=== PATIENT | female | born 1965 | race Caucasian/White ===

== ENCOUNTER 2017-05-20 16:02 | Emergency (ER) | payer BC, MEDICAID ==
[~2017-05-20] VITALS: Ht 165.1 cm; Wt 90.7 kg
[~2017-05-20 16:02] MED LIST: AMLO5TAB4 PO; ARIP5TAB10 PO; BISA-79 PO; CLON0.5T PO; DOCU100C68 PO; FAMO-131 PO; HYDR-3974 PO; HYDR10SY12 PO; HYDROMORPHONE SQ; METO25TA3 PO; ONDA4TAB8 PO; SEVE800T7 PO; VIT1TABL44 PO
--- NOTE | 2017-05-20 16:49 | NUR ---
Corina harden in [facility] - 05/20/17 at 1650 by DOMINIQUE AMBER ROBERTSON
[2017-05-20 16:57] LABS: BASOPHILS # (AUTO) 0.5 /CMM (0.0-0.2); BASOPHILS % (AUTO) 3.9 % (0.0-2.0); EOSINOPHILS # (AUTO) 0.3 /CMM (0.0-0.7); EOSINOPHILS % (AUTO) 2.1 % (0.0-6.0); HEMATOCRIT 34 % (33-45); HEMOGLOBIN 11.2 g/dL (11.5-14.8); LYMPHOCYTES # (AUTO) 1.6 /CMM (0.8-4.8); LYMPHOCYTES % (AUTO) 11.9 % (20.0-44.0); MEAN CORPUSCULAR HEMOGLOBIN 28 PG (26.0-33.0); MEAN CORPUSCULAR HGB CONC 33 g/dl (31.0-36.0); MEAN CORPUSCULAR VOLUME 85 fL (82-100); MONOCYTES # (AUTO) 1.1 /CMM (0.1-1.30); MONOCYTES % (AUTO) 7.8 % (2.0-12.0); NEUTROPHILS % (AUTO) 74.3 % (43.0-81.0); PLATELET COUNT (AUTO) 276 /CMM (150-450); RDW COEFFICIENT OF VARIATION 13.1 (11.5-15.0); RED BLOOD CELL COUNT(AUTO) 4.01 MIL/uL (4.0-5.2); WHITE BLOOD COUNT (AUTO) 13.5 K/uL (4.3-11.0)
--- NOTE | 2017-05-20 17:00 | NUR ---
PT [facility]BULANCE FOR FALL TO LEFT HIP TODAY WHILE REACHING FOR SOMETHING PT ALERT WITH ORIENTATION X 4 PT HAS BENDED KNEES BILATERALLY PT HAS A QUITIN CATH IN [facility]
[2017-05-20 17:19] LABS: INR 0.92 (0.85-1.15)
[2017-05-20 17:23] LABS: TROPONIN I < 0.017 ng/mL (0.00-0.056)
[2017-05-20 17:26] LABS: ALANINE AMINOTRANSFERASE 24 U/L (12-78); ALBUMIN 2.8 g/dL (3.4-5.0); ALKALINE PHOSPHATASE 85 U/L (46-116); ASPARTATE AMINOTRANSFERASE 31 U/L (15-37); BILIRUBIN,DIRECT 0.1 mg/dL (0.0-0.2); BILIRUBIN,TOTAL 0.3 mg/dL (0.2-1.0); CALCIUM, SERUM 8.9 mg/dL (8.5-10.1); CARBON DIOXIDE 17 mmol/L (21-32); CHLORIDE 99 mmol/L (98-107); GLUCOSE 72 mg/dL (74-106); POTASSIUM 5.4 mmol/L (3.5-5.1); SODIUM SERUM 131 mmol/L (136-145); TOTAL PROTEIN, SERUM 7.8 g/dL (6.4-8.2)
[2017-05-20 17:29] LABS: UREA NITROGEN, BLOOD 105 mg/dL (7-18)
--- NOTE | 2017-05-20 18:22 | NUR ---
SET UP S RIG FOR TRANSPORT WITH SARAH AGUAYO 70 MIN - TRIP#[id number]
--- NOTE | 2017-05-20 18:50 | NUR ---
PT REPORT GIVEN TO ROYAL MATTSON X-RAYS, LABS AND DISCHARGE PAPER GIVEN PIV REMOVED. [address] [employer] HERE TO TRANSPORT PT BACK TO FACILITY
--- NOTE | 2017-05-20 19:27 | NUR ---
DISCHARGED TO [facility] BY AMBULANZ VITAL SIGNS STABLE.
[2017-05-20 19:29] VITALS: BP 130/90
== END 2017-05-20 19:31 | disposition home or self-care (01) ==
LOC: ER 16:03
DX: S70.02XA Contusion of left hip, initial encounter (principal); I12.0 Hypertensive chronic kidney disease with stage 5 chronic kidney disease or end stage renal disease; N18.6 End stage renal disease; D64.9 Anemia, unspecified; G82.20 Paraplegia, unspecified; K59.00 Constipation, unspecified; F31.9 Bipolar disorder, unspecified; F20.9 Schizophrenia, unspecified; M85.80 Other specified disorders of bone density and structure, unspecified site; Z91.15 Patient's noncompliance with renal dialysis; Z93.0 Tracheostomy status; Z99.2 Dependence on renal dialysis; W19.XXXA Unspecified fall, initial encounter; Y93.89 Activity, other specified; Y92.89 Other specified places as the place of occurrence of the external cause; Y99.8 Other external cause status
CPT/HCPCS: 36415; 71045-TC; 72170-TC; 80048-TC; 80076-TC; 84484-TC; 85025-TC; 85730-TC; 87081-TC; A4606; Z7610

== ENCOUNTER 2017-10-19 05:01 | Inpatient (IN) | payer BC, MEDICAID ==
[~2017-10-19] VITALS: Ht 160 cm; Wt 61.2 kg
[~2017-10-19 05:01] MED LIST changes: +FAMO-131 GT; -FAMO-131 PO
--- NOTE | 2017-10-19 05:20 | NUR ---
PT TO ER BED 5. BIBRA FROM DIALYSIS C/O LOW B/P 76/43. PT PLACED ON BODY MECHANIC. VSS/RESP EVEN UNLABORED/NAD NOTED/SKIN WARM AND DRY/AFEBRILE/DENIES N-V-D/AOX4. AWAITNG MD MONCADA.
--- NOTE | 2017-10-19 05:56 | NUR ---
PT REFUSED EKG
[2017-10-19] MEDS ORDERED: IV NS 0.9% 500 ML BAG IV ONE ×2 (06:00→09:30)
[2017-10-19] MEDS ORDERED: CEFTRIAXONE 1GM BAG (ER ONLY) 50 ML IV ONE (06:00)
--- NOTE | 2017-10-19 06:03 | NUR ---
20G IV TO R WRIST X 1 ATTEMPT USING ASEPTIC TECH. IV FLUSHES EASILY WITH NS, NO S/S INFILTRATION NOTED AT THIS TIME. UNABLE TO DRAW BLOOD FOR LAB.
[2017-10-19] MEDS ORDERED: CEFTRIAXONE 1 G VIAL ONE (06:04)
--- NOTE | 2017-10-19 06:05 | NUR ---
LAB AT BEDSIDE TO DRAW LABS AND BLOOD CULTURES.
--- NOTE | 2017-10-19 06:22 | NUR ---
DR. NGO AT BEDSIDE FOR EVAL.
--- NOTE | 2017-10-19 06:24 | NUR ---
PT ACCEPTED EKG
--- NOTE | 2017-10-19 06:27 | NUR ---
INFORMED DR. JENSEN PT REFUSED MCGOVERN CATH. RISK AND BENEFITS EXPLAINED X 3. PT STRONGLY REFUSED. REQUEST FOR BED JUNG.
--- NOTE | 2017-10-19 06:36 | NUR ---
XRAY AT BEDSIDE.
--- NOTE | 2017-10-19 06:45 | NUR ---
PLACED F/C PER MD ORDER. URINE COLLECTED. CALLED LAB FOR BUDGET AND POLICY ANALYST.
[2017-10-19 06:49] LABS: CALCIUM, SERUM 9.2 mg/dL (8.5-10.1); CARBON DIOXIDE 31 mmol/L (21-32); CHLORIDE 96 mmol/L (98-107); CREATININE 4.8 mg/dL (0.6-1.3); GLUCOSE 109 mg/dL (74-106); POTASSIUM 3.4 mmol/L (3.5-5.1); SODIUM SERUM 137 mmol/L (136-145); UREA NITROGEN, BLOOD 67 mg/dL (7-18)
--- NOTE | 2017-10-19 06:54 | NUR ---
Corina harden in ED - 10/19/17 at 0702 by RICK PLACED F/C PER MD ORDER. URINE COLLECTED. CALLED LAB FOR CAUSTIC ROOM OPERATOR.
[2017-10-19 06:56] LABS: TROPONIN I < 0.017 ng/mL (0.00-0.056)
[2017-10-19 07:04] LABS: ALANINE AMINOTRANSFERASE 53 U/L (12-78); ALBUMIN 3.9 g/dL (3.4-5.0); ALKALINE PHOSPHATASE 111 U/L (46-116); ASPARTATE AMINOTRANSFERASE 25 U/L (15-37); BILIRUBIN,DIRECT 0.1 mg/dL (0.0-0.2); BILIRUBIN,TOTAL 0.3 mg/dL (0.2-1.0); TOTAL PROTEIN, SERUM 7.8 g/dL (6.4-8.2)
--- NOTE | 2017-10-19 07:22 | NUR ---
REPORT GIVEN TO ROYAL GAYTAN FOR SAIRA.
[2017-10-19] MEDS ORDERED: VANCOMYCIN 1 GM in IV D5W 250 ML IV ONE (07:30)
[2017-10-19] MEDS ORDERED: IV NS 0.9% 1,000 ML BAG IV ONE (07:30)
[2017-10-19 07:45] LABS: BASOPHILS % (AUTO) 0.5 % (0.0-2.0); EOSINOPHILS % (AUTO) 1.6 % (0.0-6.0); HEMATOCRIT 40 % (33-45); HEMOGLOBIN 12.8 g/dL (11.5-14.8); LYMPHOCYTES # (AUTO) 1.5 /CMM (0.8-4.8); LYMPHOCYTES % (AUTO) 22.4 % (20.0-44.0); MEAN CORPUSCULAR HEMOGLOBIN 28 PG (26.0-33.0); MEAN CORPUSCULAR VOLUME 87 fL (82-100); MONOCYTES # (AUTO) 0.5 /CMM (0.1-1.30); MONOCYTES % (AUTO) 7.1 % (2.0-12.0); NEUTROPHILS # (AUTO) 4.5 /CMM (1.8-8.9); NEUTROPHILS % (AUTO) 68.4 % (43.0-81.0); PLATELET COUNT (AUTO) 171 /CMM (150-450); RDW COEFFICIENT OF VARIATION 18.4 (11.5-15.0); WHITE BLOOD COUNT (AUTO) 6.6 K/uL (4.3-11.0)
[2017-10-19 07:46] LABS: MEAN CORPUSCULAR HGB CONC 32 g/dl (31.0-36.0)
[2017-10-19] MEDS ORDERED: DIPH-4 GT (08:17)
[2017-10-19] MEDS ORDERED: SENN-18 GT (08:17)
[2017-10-19] MEDS ORDERED: ESCI10TA GT (08:17)
[2017-10-19] MEDS ORDERED: ACET650S26 GT (08:17)
[2017-10-19] MEDS ORDERED: NUT.237L67 GT (08:17)
[2017-10-19] MEDS ORDERED: DOCU50LI GT (08:22)
[2017-10-19] MEDS ORDERED: MELA3TAB GT (08:22)
[2017-10-19] MEDS ORDERED: MIDO5TAB GT (08:22)
[2017-10-19 08:44] LABS: APPEARANCE,URINE CLEAR (CLEAR); BILIRUBIN,URINE NEGATIVE (NEGATIVE); BLOOD, URINE NEGATIVE Ery/uL (NEGATIVE); COLOR,URINE YELLOW (YELLOW); KETONES,URINE NEGATIVE (NEGATIVE); LEUKOCYTE ESTERASE ,URINE NEGATIVE (NEGATIVE); NITRITE, URINE NEGATIVE (NEGATIVE); PH,URINE 7.5 (5.0-8.0); PROTEIN,URINE 1+ mg/dl (NEGATIVE); UGLUCOSE NEGATIVE (NEGATIVE); UROBILINOGEN,URINE 0.2 EU/dL (0.2)
[2017-10-19 08:59] LABS: BACTERIA,URINE Rare /HPF (None Seen); RBC,URINE 0-2 /HPF (0-2); SQUAMOUS EPITHELIAL CELL,UR Few /HPF (None Seen); WBC,URINE 0-2 /HPF (0-3)
--- NOTE | 2017-10-19 09:16 | NUR ---
PAGED [facility] FOR ADMIT - FLEET ASSISTANT DR. MALDONADO
--- NOTE | 2017-10-19 09:27 | NUR ---
CALLED NURSE SUP FOR TELE BED
--- NOTE | 2017-10-19 10:54 | NUR ---
REPORT GIVEN TO RADHA PAIGE FOR TELE [phone].
--- NOTE | 2017-10-19 11:16 | NUR ---
LANCE CREWMEMBER NOTES RECEIVED PT FROM E.R. STAFF, AWAKE, ALERT AND VERBALLY RESPONSIVE, ASSISTED TO BED, MADE COMFORTABLE, NO COMPLAINT OF PAIN, RESPIRATIONS NORMAL AND NOT LABORED, HD CATH AT RIGHT UPPER CHEST, NO BLEEDING NOTED, WITH F/C INTACT AND DRAINING WITH CLEAR, YELLOW URINE, ROOM SET UP ORIENTATION PROVIDED, VERBALIZED UNDERSTANDING, AWAITING ADMISSION ORDERS FROM MD.
[2017-10-19] MEDS ORDERED: MIDODRINE HCL (5MG) 5 MG TABLET GT PRN (12:00)
[2017-10-19] MEDS ORDERED: ACETAMINOPHEN 650 MG/20.3 ML UDC GT PRN (12:00)
[2017-10-19] MEDS ORDERED: diphenhydrAMINE HCL ELIX 25 MG/10 ML UDC GT PRN (12:00)
[2017-10-19] MEDS ORDERED: IV NS 0.9% 1,000 ML BAG IV PRN (14:00)
[2017-10-19] MEDS ORDERED: ONDANSETRON HCL/PF 4 MG/2 ML VIAL IV PRN (14:00)
[2017-10-19] MEDS: IV NS 0.9% 1,000 ML IV PRN (15:13)
[2017-10-19] MEDS: NEPRO 1,000 ML BOTTLE GT PRN (15:56)
[2017-10-19 16:00] VITALS: BP 98/51
[2017-10-19] MEDS: MIDODRINE HCL (5MG) 5 MG TABLET GT SCH (16:55)
[2017-10-19] MEDS: DOCUSATE SODIUM LIQ 100 MG/10 ML UDC GT SCH (16:56)
[2017-10-19] MEDS: FAMOTIDINE (20 MG) 20 MG TABLET GT SCH (16:56)
[2017-10-19] MEDS ORDERED: Medication Not On Formulary EA (Melatonin 3 MG) GT SCH (17:00)
--- NOTE | 2017-10-19 18:41 | NUR ---
CONSTRUCTION FLAGGER NOTES PT IN BED, ASLEEP, EASY TO AROUSE, DENIES PAIN, RESPIRATIONS NORMAL, IV FLUIDS INFUSING WELL, GT FEEDING INFUSING WELL, TOLERATING WELL, PT HAS TRACH SITE COVERED WITH DRY DRESSING, PT REFUSED OLD TRACH SITE TO BE ASSESSED, CALL LIGHT WITHIN REACH, KEPT COMFORTABLE, PT SEEN BY DR. GALEANO TODAY, PT REFUSED ECHO AND LAB DRAW FOR TROPONIN, DR. GALEANO AWARE.
--- NOTE | 2017-10-19 19:00 | NUR ---
MS RN OPENING NOTE RECEIVE PATIENT AWAKE IN BED, A/O X 4, NO SOB OR DISTRESS NOTED, CALL LIGHT WITHIN REACH. SAFETY MEASURES IMPLEMENTED. WILL CONTINUE TO MONITOR THROUGHOUT SHIFT
[2017-10-19 20:00] VITALS: BP 99/52
[2017-10-19] MEDS: SENNOSIDES 8.6 MG TABLET GT SCH (21:26)
--- NOTE | 2017-10-19 22:34 | NUR ---
MS RN NOTES PT REFUSED BLOOD DRAW DESPITE EXPLAINING RISKS AND BENEFITS ANGELINE GALEANO AWARE
[2017-10-20] VITALS (7 sets, daily range): BP systolic 110–122; BP diastolic 55–68
--- NOTE | 2017-10-20 06:11 | NUR ---
CRAYON SORTING MACHINE FEEDER CLOSING NOTES ASLEEP AND EASILY AWAKEN STABLE, NOT IN DISTRESS. TOLERATING ROOM AIR 98%. SINUS TACHY 102. RESPIRATION EVEN AND UNLABORED. KEPT CLEAN AND DRY AND COMFORTABLE, ALL NURSING CARE RENDERED. NEEDS ATTENDED AND ANTICIPATED, GOOD SKIN CARE PROVIDED. NO COMPLAIN OF PAIN. REPOSITION EVERY 2 HOURS. ON LOW BED AT ALL TIMES TO ENSURE SAFETY. SAFE HAZARD FREE ENVIRONMENT PROVIDED. CALL LIGHT WITHIN EASY TO REACH. WILL ENDORSE NEXT SHIFT CONTINUITY OF CARE.
--- NOTE | 2017-10-20 07:33 | NUR ---
AIR BRAKE TESTER NOTES PT IN BED, ASLEEP, EASY TO AROUSE, ALERT AND VERBALLY RESPONSIVE, DIALYSIS ONGOING, TOLERATING WELL, BP WITHIN NORMAL LIMITS, CALL LIGHT WITHIN REACH, KEPT TRANSPORTATION DRIVER BED.
[2017-10-20] MEDS: ESCITALOPRAM OXALATE (10 MG) 10 MG TABLET GT SCH (09:19)
[2017-10-20] MEDS: DOCUSATE SODIUM LIQ 100 MG/10 ML UDC GT SCH ×2 (09:19→16:30)
[2017-10-20] MEDS: MIDODRINE HCL (5MG) 5 MG TABLET GT SCH ×3 (09:19→16:31)
[2017-10-20] MEDS: FAMOTIDINE (20 MG) 20 MG TABLET GT SCH ×2 (09:19→16:31)
[2017-10-20] MEDS: NEPRO 1,000 ML BOTTLE GT PRN (09:23)
[2017-10-20] MEDS: IV NS 0.9% 1,000 ML IV PRN (09:28)
--- NOTE | 2017-10-20 11:49 | NUR ---
RN MS NOTES PT IN BED, RESTING, ALERT AND ORIENTED, NO COMPLAINT OF PAIN OR ANY DISCOMFORT, TOLERATING GT FEEDING WELL, SEEN BY DR. GALEANO, PLAN OF CARE DISCUSSED WITH PT, VERBALIZED UNDERSTANDING, AGREED TO DRAW BLOOD BUT WHEN PHLEBOTOMISTS CAME FOR BLOOD DRAW SHE REFUSED AGAIN, SAYING THAT IT'S OK, EXPLAINED RISKS AND BENEFITS, STILL REFUSED, DR. GAELANO INFORMED.
--- NOTE | 2017-10-20 18:43 | NUR ---
RN MS NOTES PT IN BED, ASLEEP, EASY TO AROUSE, NO COMPLAINT OF PAIN, RESPIRATIONS NORMAL GT FEEDING INFUSING WELL, IV FLUIDS INFUSING WELL, PM CARE RENDERED, PT REFUSED HER TSHIRT TO BE REMOVED, ASSISTED IN TURNING AND REPOSITIONING, PM MEDS GIVEN, VITALS WNL, ALL NEEDS ATTENDED.
--- NOTE | 2017-10-20 19:35 | NUR ---
MS/RN OPENING NOTES PT RECEIVED WITH EYES CLOSED. AROUSABLE TO NAME. ON ROOM AIR, BREATHING EVEN AND UNLABORED. DENIES SOB OR PAIN. A/OX3. MCGOVERN IN PLACE AND DRAINING TO GRAVITY. IV TO RIGHT WRIST PATENT AND INTACT RUNNING IVF ORDERED. GT FEEDING RUNNING NEPHRO AT 55ML/HR. BED IN LOW/LOCKED POSITION WITH CALL LIGHT IN REACH. SIDE RAILS UPX3 AND BED ALARM ON FOR SAFETY. WILL CONTINUE TO MONITOR
[2017-10-20] MEDS: SENNOSIDES 8.6 MG TABLET GT SCH (21:00)
[2017-10-21] MEDS: NEPRO 1,000 ML BOTTLE GT PRN (04:24)
[2017-10-21] MEDS: IV NS 0.9% 1,000 ML IV PRN (06:18)
--- NOTE | 2017-10-21 06:24 | NUR ---
MS/RN CLOSING NOTES PT ASLEEP, AROUSABLE TO NAME. A/OX3. REMAINS ON ROOM AIR, BREATHING EVEN AND UNLABORED. NO SOB OR PAIN, NO ACUTE DISTRESS THROUGHOUT SHIFT. RCW HD CATH IN PLACE, DRESSING C/D/I. IV TO RIGHT WRIST PATENT AND INTACT RUNNING IVF ORDERED. GT FEEDING RUNNING ORDERED. MCGOVERN IN PLACE AND DRAINING TO GRAVITY. PT WAS UNCOOPERATIVE WITH TURNING/REPOSITIONING Q2H AND HYGIENE. EDUCATED PT MORE THAN 3X, PT VERY UNCOOPERATIVE AND COMBATIVE AT TIMES BUT ABLE TO CLEAN PT'S PERIANAL AREA AND TURN. REFUSED FULL BODY SKIN CHECK AND COMPLETE BED BATH, AND REFUSED TO REMOVE DIRTY TSHIRT. OTHERWISE, NO SIGNIFICANT CHANGES. BED IN LOW/LOCKED POSITION WITH CALL LIGHT IN REACH. SIDE RAILS UPX3 WITH BED ALARM ON. HEELS OFFLOADED. WILL ENDORSE TO DAY SHIFT RN
--- NOTE | 2017-10-21 07:50 | NUR ---
MS RN OPENING NOTES RECEIVED PT FROM NIGHTSHIFT NURSE IN STABLE CONDITION. PT IS A/O X3. NO SOB OR ACUTE SIGNS OF DISTRESS NOTED. BREATHING IS EVEN AND UNLABORED. PT ON RA AND SATING WELL. SHE DENIES ANY PAIN AT THIS TIME. IV TO RIGHT WRIST NOTED TO BE PATENT INTACT. PT TOLERATING NS INFUSION WELL. NO REDNESS OR SIGNS OF INFILTRATION NOTED. PERMACATH NOTED FOR HD ACCESS. DRESSING CLEAN, DRY, AND INTACT. GTUBE NOTED TO BE PATENT AND INTACT. PLACEMENT VERIFIED VIA AUSCULTATION. PT TOLERATING FEEDING WELL. NO N/V/D NOTED BY NIGHTSHIFT NURSE AND/OR EXPRESSED BY PT. LESS THAN 5CC OF RESIDUALS NOTED AT THIS TIME. MCGOVERN CATHETER NOTED TO BE INTACT AND DRAINING CLEAR, YELLOW, URINE. BED IN LOW LOCKED POSITION, SIDE RAILS UP X2, CALL LIGHT WITHIN REACH. BED ALARM ON. WILL CONTINUE TO MONITOR
[2017-10-21 08:00] VITALS: BP 83/44
[2017-10-21] MEDS: ESCITALOPRAM OXALATE (10 MG) 10 MG TABLET GT SCH (08:31)
[2017-10-21] MEDS: DOCUSATE SODIUM LIQ 100 MG/10 ML UDC GT SCH ×2 (08:31→16:23)
[2017-10-21] MEDS: FAMOTIDINE (20 MG) 20 MG TABLET GT SCH ×2 (08:31→16:23)
[2017-10-21] MEDS: MIDODRINE HCL (5MG) 5 MG TABLET GT SCH ×3 (08:34→16:24)
--- NOTE | 2017-10-21 10:12 | NUR ---
MS RN NOTES: LAB DRAW PT CONTINUES TO REFUSE AM LAB DRAW. EDUCATION ABOUT IT'S IMPORTANCE ALONG WITH THE RISKS AND BENEFITS DISCUSSED WITH PT.
[2017-10-21 16:05] VITALS: BP 108/51
[2017-10-21 16:24] VITALS: BP 108/51
--- NOTE | 2017-10-21 19:08 | NUR ---
MS TEACHING YOUNG NOTES PT WAS DISCHARGED FROM FACILITY IN STABLE CONDITION. ALL NEEDS WERE ANTICIPATED FOR AND MET DURING SHIFT ALL DUE MEDS GIVEN. PT REPOSITIONED AND TURNED PER PROTOCOL. AM CARE RENDERED HOWEVER PT REFUSED FURTHER PRN TREATMENT. BELONGINGS VERIFIED PRIOR TO D/C. PT LEFT WITH ALL BELONGINGS. IV WAS SUCCESSFULLY REMOVED WITH NO COMPLICATIONS. PT UNABLE TO SIGNS D/C PAPERWORK. MYSELF AND FELLOW RN SIGNED ALL PAPERWORK. COPIES MADE AND PLACED IN PT'S CHART. MCGOVERN CATHETER REMOVED WITH NO COMPLICATIONS. PT ABLE TO VOID PRIOR TO D/C. GTUBE REMAINS PATENT AND INTACT. REPORT CALLED AND GIVEN TO DON THE RECEIVING NURSE. PT WAS SAFELY TRANSFERRED FROM [facility] TO [facility] AND LEFT VIA AMBULANCE TRANSPORT
== END 2017-10-21 19:00 | DRG 640 ==
LOC: ER 05:02 → MED 10:41 → TELE 12:45 → MED 10-20 10:05
PROVIDERS: ADMIT Internal Medicine Nephrology; ATTEND Internal Medicine Nephrology
PROC: 5A1D70Z Performance of Urinary Filtration, Intermittent, Less than 6 Hours Per Day (ICD-10-PCS; principal; 2017-10-20)
DX: E86.0 Dehydration (principal); N18.6 End stage renal disease; I12.0 Hypertensive chronic kidney disease with stage 5 chronic kidney disease or end stage renal disease; I95.9 Hypotension, unspecified; R13.10 Dysphagia, unspecified; Z99.2 Dependence on renal dialysis; Z93.0 Tracheostomy status; F29 Unspecified psychosis not due to a substance or known physiological condition; D64.9 Anemia, unspecified; E83.9 Disorder of mineral metabolism, unspecified; F31.9 Bipolar disorder, unspecified; F20.9 Schizophrenia, unspecified; Z91.19 Patient's noncompliance with other medical treatment and regimen
CPT/HCPCS: 36415; 71045-TC; 80048-TC; 80076-TC; 81000-TC; 83605-TC; 84484-TC; 84703-TC; 85025-TC; 87040-TC; 87081-TC; 87086-TC; 90935-TC; A4216; A4606; J0696; J3370; J7030; J7040; J7060; Z7610

== ENCOUNTER 2019-04-04 09:22 | Inpatient (IN) | payer BC, MEDICAID ==
[~2019-04-04] VITALS: Ht 167.6 cm; Wt 82.6 kg
[2019-04-04] VITALS (15 sets, daily range): BP systolic 96–151; BP diastolic 45–76
[~2019-04-04 09:22] MED LIST changes: +ACET650S26 GT; -AMLO5TAB4 PO; -ARIP5TAB10 PO; -BISA-79 PO; -CLON0.5T PO; +DIPH-4 GT; -DOCU100C68 PO; +DOCU50LI GT; +ESCI10TA PO; -FAMO-131 GT; +FAMO-131 PO; -HYDR-3974 PO; -HYDR10SY12 PO; -HYDROMORPHONE SQ; +MELA3TAB63 GT; -METO25TA3 PO; +MIDO5TAB4 GT; +NUT.237L67 GT; -ONDA4TAB8 PO; +SENN-18 GT; -SEVE800T7 PO; -VIT1TABL44 PO
--- NOTE | 2019-04-04 09:33 | NUR ---
PT REC'D TO ER VIA EMS WAS POST DILAYSIS SOB USES CAP AT HOME . TACH REMOVED 9 YEARS AGO RT ARM SHUNT HX [place] . ON NON AIR REBREATHER CALLED RT BIPAP BREATHING TX . AWAITING EVALUATION BY ER PROVIDER.
[2019-04-04] MEDS ORDERED: IPRATROPIUM NEB FS 0.5 MG/2.5 ML AMPUL.NEB ONE (09:35)
[2019-04-04] MEDS ORDERED: ALBUTEROL FS 2.5 MG/3 ML VIAL.NEB ONE (09:35)
--- NOTE | 2019-04-04 09:41 | NUR ---
RA 83% BIPAP 98% EKG DONE
--- NOTE | 2019-04-04 09:41 | NUR ---
RT AT BEDSID E BREATHING TX GIVNE AND BIPAP ALLPIED TO PT
[2019-04-04] MEDS ORDERED: IPRATROPIUM NEB FS 0.5 MG/2.5 ML AMPUL.NEB NEB ONE (10:00)
[2019-04-04] MEDS ORDERED: ALBUTEROL FS 2.5 MG/3 ML VIAL.NEB NEB ONE (10:00)
--- NOTE | 2019-04-04 10:11 | NUR ---
DORIS STRSHALINI 22 LET FA LABS DRAWN SENT TO LAB XRAY DONE
[2019-04-04 10:16] LABS: BASOPHILS % (AUTO) 0.4 % (0.0-2.0); EOSINOPHILS % (AUTO) 0.1 % (0.0-6.0); HEMATOCRIT 33 % (33-45); HEMOGLOBIN 10.6 g/dL (11.5-14.8); LYMPHOCYTES # (AUTO) 0.2 /CMM (0.8-4.8); LYMPHOCYTES % (AUTO) 2.6 % (20.0-44.0); MEAN CORPUSCULAR HGB CONC 32 g/dl (31.0-36.0); MEAN CORPUSCULAR VOLUME 97 fL (82-100); MONOCYTES # (AUTO) 0.6 /CMM (0.1-1.30); MONOCYTES % (AUTO) 6.7 % (2.0-12.0); NEUTROPHILS # (AUTO) 8.5 /CMM (1.8-8.9); NEUTROPHILS % (AUTO) 90.2 % (43.0-81.0); PLATELET COUNT (AUTO) 109 /CMM (150-450); RED BLOOD CELL COUNT(AUTO) 3.38 MIL/uL (4.0-5.2); WHITE BLOOD COUNT (AUTO) 9.4 K/uL (4.3-11.0)
[2019-04-04 10:21] LABS: CALCIUM, SERUM 8.4 mg/dL (8.5-10.1); CARBON DIOXIDE 33 mmol/L (21-32); CHLORIDE 94 mmol/L (98-107); CREATININE 4.4 mg/dL (0.6-1.3); GLUCOSE 121 mg/dL (74-106); POTASSIUM 4.5 mmol/L (3.5-5.1); SODIUM SERUM 134 mmol/L (136-145); UREA NITROGEN, BLOOD 35 mg/dL (7-18)
[2019-04-04 10:34] LABS: ALANINE AMINOTRANSFERASE 31 U/L (12-78); ALBUMIN 3.9 g/dL (3.4-5.0); ALKALINE PHOSPHATASE 60 U/L (46-116); ASPARTATE AMINOTRANSFERASE 21 U/L (15-37); B-TYPE NATRIURETIC PEPTIDE 15263 PG/ML (0-125); BILIRUBIN,DIRECT 0.1 mg/dL (0.0-0.2); BILIRUBIN,TOTAL 0.5 mg/dL (0.2-1.0)
--- NOTE | 2019-04-04 10:50 | NUR ---
BLOOD DRAW FOR ABG
[2019-04-04] MEDS ORDERED: CALC667T2 PO (10:58)
[2019-04-04] MEDS ORDERED: BISA10SU11 RC (10:58)
[2019-04-04] MEDS ORDERED: FERR325T23 PO (10:58)
[2019-04-04] MEDS ORDERED: LEVE250T2 PO (10:58)
[2019-04-04] MEDS ORDERED: SEVE800T8 PO (10:58)
[2019-04-04] MEDS ORDERED: GUAI600T31 PO (10:58)
[2019-04-04] MEDS ORDERED: POLY17PO4 PO (10:58)
[2019-04-04] MEDS ORDERED: ARIP10TA9 PO (10:58)
[2019-04-04] MEDS ORDERED: HYDR-4384 PO (10:58)
[2019-04-04] MEDS ORDERED: FOLI0.8T2 PO (10:58)
[2019-04-04] MEDS ORDERED: FURO-144 PO (10:58)
[2019-04-04 11:16] LABS: ABG BASE EXCESS 2.6 mmol/L; ABG PCO2 56.2 mmHg (35.0-45.0); ABG PH 7.336 (7.350-7.450); AaDO2 432.8 mmHg; COHb 1.1 % (0.5-1.5); MetHb 0.4 % (0.0-1.5); O2Hb 97.5 % (94.0-97.0); SITE, ABG Left Radial; VENT MODE, BG ST 15/5 RR16 100%
--- NOTE | 2019-04-04 11:53 | NUR ---
CALLED [facility] DR. IBARRA
--- NOTE | 2019-04-04 12:04 | NUR ---
PT EASLIY AROUSED VSS CONT TO MONITOR
--- NOTE | 2019-04-04 12:56 | NUR ---
REPORT GIVEN TO SINCERE PAIGE. AWAITING TRANSFER TO FLOOR.
--- NOTE | 2019-04-04 13:00 | NUR ---
received pt from ER, a/ox4, follows commands, ST, on Bipap at 50% fi02, lungs partially congested, no edema, HD pt, R and L upper arm AV shunt, BLE sever weakness, hyperextension of BL food, v/s stable, no pain.
--- NOTE | 2019-04-04 13:03 | NUR ---
P CALLED REPORT PT STABLE FOR TRANSFER
[2019-04-04] MEDS ORDERED: ACETAMINOPHEN 650 MG/20.3 ML UDC PO PRN (15:00)
[2019-04-04] MEDS ORDERED: BISACODYL SUPP (10 MG) 10 MG/SUPP.RECT SUPP.RECT RC PRN (15:00)
[2019-04-04] MEDS ORDERED: diphenhydrAMINE HCL 25 MG CAPSULE PO PRN (15:00)
[2019-04-04] MEDS: ESCITALOPRAM OXALATE (10 MG) 10 MG TABLET PO SCH (15:50)
[2019-04-04] MEDS: FUROSEMIDE 40 MG TABLET PO SCH (15:50)
[2019-04-04] MEDS: FAMOTIDINE (20 MG) 20 MG TABLET PO SCH (15:50)
[2019-04-04] MEDS: FERROUS SULFATE (325 MG) 325 MG/TAB TABLET PO SCH (15:50)
--- NOTE | 2019-04-04 16:15 | NUR ---
pt is resting in the bed, alert, follows commands, ST, on bipap sat well, v/s stable, no pain, pt cleaned, changed and repositioned.
[2019-04-04] MEDS: CALCIUM ACETATE 667 MG TABLET PO SCH (17:16)
[2019-04-04] MEDS: SEVELAMER CARBONATE 800 MG TABLET PO SCH (17:16)
[2019-04-04] MEDS: LEVETIRACETAM (250 MG) 250 MG TABLET PO SCH (17:16)
--- NOTE | 2019-04-04 19:30 | NUR ---
BILINGUAL MEDICAL ASSISTANT OPENING NOTE RECEIVED PATIENT A/O X4 ON BIPAP PATIENT IS VIETNAMESE SPEAKER. BIP SETTING 15/5 RATE AT 16 WITH Fi02 OF 50%. PATIENT IS SATURATING AT 97% AND NO COMPLAINTS OF ANY SOB. PATIENT HAS RIGHT AND LEFT AV SHUNT AND RFA #22, AND LT PEC IV #22 FLUSHED AND PATENT. PATIENT ON THE MONITOR SHOWING SINUS TACHY HR IN THE 110'S. PATIENT SHOWS NO SIGN OF ANY DISTRESS. ALL SAFETY PRECAUTIONS APPLIED. BIPAP MACHINE PLUGGED INTO RED OUTLET. WILL CONTINUE TO MONITOR PATIENT FOR SAIRA.
[2019-04-04] MEDS ORDERED: VANCOMYCIN 1 GM VIAL ONE (20:29)
[2019-04-04] MEDS ORDERED: VANCOMYCIN 1.5 GM in IV D5W 500ml IV ONE (20:30)
[2019-04-04] MEDS ORDERED: CEFEPIME 1 GM VIAL ONE (20:57)
[2019-04-04] MEDS: GUAIFENESIN LA 600 MG TABLET.SA PO SCH (21:03)
[2019-04-04] MEDS: HYDROCODONE/APAP 5/325MG 1 EACH TABLET PO PRN (21:03)
[2019-04-04] MEDS: CEFEPIME 1 GM in IV D5W 50 ML IV SCH (21:19)
[2019-04-05] VITALS (29 sets, daily range): BP systolic 92–136; BP diastolic 49–112
--- NOTE | 2019-04-05 03:04 | NUR ---
ICU/RN NOTE WENT INTO PATIENTS ROOM AND ASKED PATIENT IF I COULD CHANGE LINENS AND GIVE BED BATH. AT THIS TIME PATIENT REFUSED BED BATH. WILL TRY AGAIN DURING SHIFT.
[2019-04-05] MEDS ORDERED: CEFEPIME 1 GM VIAL ONE (04:54)
[2019-04-05] MEDS: CEFEPIME 1 GM in IV D5W 50 ML IV SCH ×2 (05:06→22:00)
[2019-04-05] MEDS: HYDROCODONE/APAP 5/325MG 1 EACH TABLET PO PRN ×4 (05:13→22:49)
--- NOTE | 2019-04-05 07:15 | NUR ---
SALES BRANCH MANAGER NOTES RECEIVED PATIENT AOX3-4 , NOT IN ACUTE DISTRESS , DENIES SOB , TOLERATING BIPAP ORDERED WITH SPO2 OF 95% ,ST 105 ON BEDSIDE MONITOR , RIGHT AND LEFT AC SHUNT (+) WITH BRUIT AND THRILL , PIV PATENT AND INTACT , ALL NEEDS ATTENDED , BED ON LOW AND LOCKED POSITION , SIDE RAILS X2 ,CALL LIGHT WITHIN REACH , HOB @ 35-45 WILL CONTINUE TO MONITOR
--- NOTE | 2019-04-05 07:25 | NUR ---
ICU/RN CLOSING NOTE PATIENT IN BED WITH NO SIGN OF DISTRESS. PATIENT CONTINUES ON BIPAP TOLERATING WELL. NO SIGN OF ASPIRATION. ALL SAFETY PRECAUTIONS APPLIED. ENDORSED PATIENT TO MORNING SHIFT NURSE.
[2019-04-05] MEDS ORDERED: VANCOMYCIN 500 MG in IV D5W 100 ML IV PRN (07:30)
--- NOTE | 2019-04-05 07:30 | NUR ---
PARTS CLEANER NOTES PLACED PT ON 3LPM NC SPO2 OF 95% NO SOB NOTED WILL CONTINUE TO MONITOR
--- NOTE | 2019-04-05 07:30 | NUR ---
RT PLACED PT OFF BIPAP W/ 3L NC. PT STATES NO SOB OR RESP DISTRESS. WILL CONTINUE TO MONITOR AND OBTAIN ABG OFF BIPAP PER MD ORDER.
[2019-04-05] MEDS ORDERED: FEE PK DOSING 1 MIN EA MC ONE (08:09)
[2019-04-05 09:07] LABS: ABG OXYGEN SATURATION 74.8 % (92.0-98.5); ABG PCO2 61.6 mmHg (35.0-45.0); ABG PH 7.313 (7.350-7.450); ABG PO2 42.5 mmHg (75.0-100.0); AaDO2 171.9 mmHg; COHb 1.1 % (0.5-1.5); MetHb 0.2 % (0.0-1.5); O2Hb 73.8 % (94.0-97.0); SITE, ABG Left Radial; VENT MODE, BG NASAL CANNULA
--- NOTE | 2019-04-05 09:13 | NUR ---
TOOLS AND PARTS ATTENDANT NOTES PT PLACED ON BIPAP ORDERED , ABG RESULT RELAYED TO DR JONES , WILL CONTINUE TO MONITOR
--- NOTE | 2019-04-05 09:20 | NUR ---
RT PLACED PT BACK ON BIPAP POST ABG RESULTS AND SP02 DECREASING. ALARMS CHECKED AND AUDIBLE. BIPAP PLUGGED IN RED OUTLET. WILL CONTINUE TO MONITOR T/O SHIFT.
[2019-04-05] MEDS: CALCIUM ACETATE 667 MG TABLET PO SCH ×3 (09:33→17:09)
[2019-04-05] MEDS: VIT B CMPLX 3/FA/VIT C/BIOTIN 1 TAB TABLET PO SCH (09:33)
[2019-04-05] MEDS: SEVELAMER CARBONATE 800 MG TABLET PO SCH ×3 (09:33→17:09)
[2019-04-05] MEDS: FUROSEMIDE 40 MG TABLET PO SCH (09:33)
[2019-04-05] MEDS: FERROUS SULFATE (325 MG) 325 MG/TAB TABLET PO SCH (09:33)
[2019-04-05] MEDS: LEVETIRACETAM (250 MG) 250 MG TABLET PO SCH ×2 (09:34→17:09)
[2019-04-05] MEDS: ESCITALOPRAM OXALATE (10 MG) 10 MG TABLET PO SCH (09:34)
[2019-04-05] MEDS: FAMOTIDINE (20 MG) 20 MG TABLET PO SCH (09:34)
[2019-04-05] MEDS: GUAIFENESIN LA 600 MG TABLET.SA PO SCH ×2 (09:34→20:28)
--- NOTE | 2019-04-05 12:00 | NUR ---
ADMINISTRATIVE SERVICES MANAGER NOTES PLACED PT ON 3LPM NC FOR LUNCH , OFF BIPAP , SPO2 OF 90-92% , NO DISTRESS NOTED . ASPIRATIONS PREC OBSERVED
--- NOTE | 2019-04-05 12:30 | NUR ---
CREDIT REPRESENTATIVE NOTES PLACED BACK PT ON BIPAP PER REQUEST , COMPLAINS OF MILD SOB, SPO2 OF 85% ON 3LPM , TOLERATING BIPAP SETTINGS WITH SPO2 OF 92%
--- NOTE | 2019-04-05 15:42 | NUR ---
MUSIC PROFESSOR NOTES VANCOMYCIN THOUGH OF 24 , SPOKE WITH STACY , NOTIFIED REGARDING THE RESULT
--- NOTE | 2019-04-05 16:35 | NUR ---
MICROSTRATEGY BI DEVELOPER NOTES STABLE S/P HD , 2L OUT , VS WNL , AFEBRILE
[2019-04-05] MEDS: ARIPIPRAZOLE 5 MG TABLET PO SCH (22:50)
[2019-04-06] VITALS (24 sets, daily range): BP systolic 95–143; BP diastolic 40–112
--- NOTE | 2019-04-06 03:00 | NUR ---
MEASURER MACHINE NOTES PATIENT REQUESTED FOR A SIP CRANBERRY JUICE. ASKED PATIENT AT THIS TIME IF SHE WOULD LIKE A BED BATH. PATIENT STATES "TOO COLD RIGHT NOW, MAYBE LATER." PATIENT'S WISHES OBSERVED, JUICE GIVEN, PLACED BACK ON BIPAP. WILL MONITOR CLOSELY
--- NOTE | 2019-04-06 03:45 | NUR ---
MANUFACTURING CHIEF ENGINEER NOTES WOUND CULTURE FROM TRACH STOMA OBTAINED, SENT TO LAB FOR TESTING ORDERED. UNABLE TO COLLECT SPUTUM SAMPLE AT THIS TIME PATIENT "DOESN'T HAVE SPIT READY" AT THIS TIME. WILL TRY AGAIN AT LATER TIME
[2019-04-06 05:30] LABS: BASOPHILS % (AUTO) 0.4 % (0.0-2.0); EOSINOPHILS % (AUTO) 2.1 % (0.0-6.0); HEMATOCRIT 32 % (33-45); HEMOGLOBIN 10.2 g/dL (11.5-14.8); LYMPHOCYTES # (AUTO) 0.5 /CMM (0.8-4.8); LYMPHOCYTES % (AUTO) 8.2 % (20.0-44.0); MEAN CORPUSCULAR HGB CONC 32 g/dl (31.0-36.0); MEAN CORPUSCULAR VOLUME 97 fL (82-100); MONOCYTES # (AUTO) 0.7 /CMM (0.1-1.30); MONOCYTES % (AUTO) 11.9 % (2.0-12.0); NEUTROPHILS # (AUTO) 4.8 /CMM (1.8-8.9); NEUTROPHILS % (AUTO) 77.4 % (43.0-81.0); PLATELET COUNT (AUTO) 134 /CMM (150-450); RED BLOOD CELL COUNT(AUTO) 3.27 MIL/uL (4.0-5.2); WHITE BLOOD COUNT (AUTO) 6.2 K/uL (4.3-11.0)
[2019-04-06 05:42] LABS: ALBUMIN 3.3 g/dL (3.4-5.0); BILIRUBIN,TOTAL 0.7 mg/dL (0.2-1.0); CALCIUM, SERUM 9.5 mg/dL (8.5-10.1); CREATININE 5.1 mg/dL (0.6-1.3); PHOSPHORUS 4.8 mg/dL (2.5-4.9); POTASSIUM 4.5 mmol/L (3.5-5.1); TOTAL PROTEIN, SERUM 6.9 g/dL (6.4-8.2)
[2019-04-06] MEDS: HYDROCODONE/APAP 5/325MG 1 EACH TABLET PO PRN ×3 (05:52→19:16)
[2019-04-06] MEDS: SEVELAMER CARBONATE 800 MG TABLET PO SCH ×3 (09:05→18:27)
[2019-04-06] MEDS: CALCIUM ACETATE 667 MG TABLET PO SCH ×3 (09:05→18:27)
[2019-04-06] MEDS: FUROSEMIDE 40 MG TABLET PO SCH (09:06)
[2019-04-06] MEDS: FERROUS SULFATE (325 MG) 325 MG/TAB TABLET PO SCH (09:06)
[2019-04-06] MEDS: LEVETIRACETAM (250 MG) 250 MG TABLET PO SCH ×2 (09:06→18:27)
[2019-04-06] MEDS: VIT B CMPLX 3/FA/VIT C/BIOTIN 1 TAB TABLET PO SCH (09:06)
[2019-04-06] MEDS: FAMOTIDINE (20 MG) 20 MG TABLET PO SCH (09:06)
[2019-04-06] MEDS: ESCITALOPRAM OXALATE (10 MG) 10 MG TABLET PO SCH (09:07)
[2019-04-06] MEDS: GUAIFENESIN LA 600 MG TABLET.SA PO SCH ×2 (09:07→21:14)
[2019-04-06 10:55] LABS: ABG BASE EXCESS 2.9 mmol/L; ABG OXYGEN SATURATION 87.3 % (92.0-98.5); ABG PCO2 59.3 mmHg (35.0-45.0); ABG PH 7.322 (7.350-7.450); ABG PO2 56.7 mmHg (75.0-100.0); AaDO2 160.3 mmHg; COHb 0.7 % (0.5-1.5); MetHb 0.1 % (0.0-1.5); O2Hb 86.6 % (94.0-97.0); SITE, ABG Left Radial; VENT MODE, BG Nasal Cannula
--- NOTE | 2019-04-06 11:00 | NUR ---
RN NOTE PT AOX3, CO BACK PAIN 10/11, HUNGER. WAS OFF BIPAP SIN 0930 ABLE TO EAT AND HAD 25% OF BREAKFAST, ON NC 5.0 L/MIN, O2 SATURATION 88-90%. ABG WAS DONE 1044, DR JONES AWARE AND ORDERED PT TO BE PLACED BACK TO BIPAP. WILL FOLLOW THROUGH AND MONITOR.
--- NOTE | 2019-04-06 14:35 | NUR ---
RT NOTE Pt rec'd on Bipap. Pt shows no signs of resp distress or sob. Pt awake and alert. Mepilex in place and no skin tear or redness noted. Bipap plugged into red outlet. Ambu bag bedside. Alarms are set and audible. Will continue to monitor closely. Addendum: 04/06/19 at 1437 by EVA CALDERON RT Amended: Links added.
--- NOTE | 2019-04-06 17:00 | NUR ---
RN NOTE OKAY TO USE RIGHT FEMORAL TRIPLE LUMEN CENTRAL LINE PER PICC LINE NURSE ARMIDA.
--- NOTE | 2019-04-06 20:00 | NUR ---
STEAM BOX HAND NOTES RT KINDRA AT BEDSIDE. SPO2 NOTED TO BE IN THE UPPER 80s WHILE ON BIPAP, FIO2 CURRENTLY @ 50%. FIO2 TITRATED TO 60% BY RT, SPO2 RISING TO LOW 90s. WILL MONITOR CLOSELY
[2019-04-06] MEDS: CEFEPIME 1 GM in IV D5W 50 ML IV SCH (21:14)
[2019-04-06] MEDS: ARIPIPRAZOLE 5 MG TABLET PO SCH (21:14)
[2019-04-07] VITALS (25 sets, daily range): BP systolic 83–153; BP diastolic 35–88
[2019-04-07] MEDS: HYDROCODONE/APAP 5/325MG 1 EACH TABLET PO PRN ×5 (01:21→19:20)
--- NOTE | 2019-04-07 02:00 | NUR ---
AUTOMATIC COIN MACHINE MECHANIC NOTES PATIENT WITH C/O BACK PAIN. DUE TO BACK PAIN, PATIENT REFUSING TURNING/REPOSITIONING. PATIENT EDUCATION PROVIDED REGARDING RISKS AND CONSEQUENCES OF STAYING IN THE SAME POSITION, INCLUDING DEVELOPMENT OF SKIN BREAKDOWN, WITH VERBALIZATION OF UNDERSTANDING, BUT STILL STRONGLY REFUSING REPOSITIONING. PAIN MEDICATION ADMINISTERED ORDERED, WILL MONITOR CLOSELY
[2019-04-07 04:32] LABS: BASOPHILS % (AUTO) 0.5 % (0.0-2.0); HEMATOCRIT 31 % (33-45); LYMPHOCYTES # (AUTO) 0.5 /CMM (0.8-4.8); LYMPHOCYTES % (AUTO) 8.4 % (20.0-44.0); MEAN CORPUSCULAR HGB CONC 32 g/dl (31.0-36.0); MEAN CORPUSCULAR VOLUME 97 fL (82-100); MONOCYTES # (AUTO) 0.7 /CMM (0.1-1.30); MONOCYTES % (AUTO) 10.6 % (2.0-12.0); NEUTROPHILS # (AUTO) 4.9 /CMM (1.8-8.9); NEUTROPHILS % (AUTO) 77.5 % (43.0-81.0); PLATELET COUNT (AUTO) 143 /CMM (150-450); RED BLOOD CELL COUNT(AUTO) 3.22 MIL/uL (4.0-5.2); WHITE BLOOD COUNT (AUTO) 6.3 K/uL (4.3-11.0)
[2019-04-07 05:21] LABS: ALBUMIN 3.2 g/dL (3.4-5.0); BILIRUBIN,TOTAL 0.9 mg/dL (0.2-1.0); CALCIUM, SERUM 9.4 mg/dL (8.5-10.1); CREATININE 6.9 mg/dL (0.6-1.3); MAGNESIUM 2.2 mg/dL (1.8-2.4); PHOSPHORUS 5.2 mg/dL (2.5-4.9); POTASSIUM 4.6 mmol/L (3.5-5.1)
--- NOTE | 2019-04-07 06:00 | NUR ---
CLIN NURSE SPEC NOTES UNABLE TO COLLECT SPUTUM CULTURE. PATIENT STATES "IM TRYING BUT I CAN COUGH ANYTHING UP."
--- NOTE | 2019-04-07 07:30 | NUR ---
RN NOTES RECEIVED PATIENT ASLEEP, BUT EASILY AWAKEN BY VERBAL STIMULI. A/O X4, ABLE TO RESPOND APPROPRIATELY. ON BI PAP, TOLERATING CURRENT VENT SETTINGS, SATING 97% AT THIS TIME. SINUS TACHY ON THE MONITOR WITH HR ON THE 101. AFEBRILE AT 97.8. DRESSING NOTED AT THE JACKIE, IN PLACE AND INTACT, NO BLEEDING NOTED. WITH COMPLAINTS OF BACK PAIN- WILL ADMINISTER PRN MEDICATION THE PATIENT REQUESTS IF DUE. PATIENT ASSISTED IN ASSUMING POSITION OF COMFORT. TLC NOTED ON THE R GROIN AREA, IN PLACE AND INTACT, SL, ALL LUMEN FLUSHES WELL. PATIENT ENCOURAGE TO VERBALIZE FEELINGS AND CONCERNS, TO CALL FOR HELP AND ASSISTANCE. CALL LIGHT PLACED WITHIN REACH. SAFETY MEASURES OBSERVED AND MAINTAINED. WILL CONTINUE TO MONITOR PATIENT CLOSELY
[2019-04-07] MEDS: SEVELAMER CARBONATE 800 MG TABLET PO SCH ×3 (08:24→18:11)
[2019-04-07] MEDS: CALCIUM ACETATE 667 MG TABLET PO SCH ×3 (08:24→18:12)
[2019-04-07] MEDS: LEVETIRACETAM (250 MG) 250 MG TABLET PO SCH ×2 (08:31→18:12)
[2019-04-07] MEDS: ESCITALOPRAM OXALATE (10 MG) 10 MG TABLET PO SCH (08:31)
[2019-04-07] MEDS: FERROUS SULFATE (325 MG) 325 MG/TAB TABLET PO SCH (08:31)
[2019-04-07] MEDS: GUAIFENESIN LA 600 MG TABLET.SA PO SCH ×2 (08:32→21:30)
[2019-04-07] MEDS: VIT B CMPLX 3/FA/VIT C/BIOTIN 1 TAB TABLET PO SCH (08:32)
[2019-04-07] MEDS: FUROSEMIDE 40 MG TABLET PO SCH (08:32)
[2019-04-07] MEDS: FAMOTIDINE (20 MG) 20 MG TABLET PO SCH (08:33)
[2019-04-07 11:05] LABS: ABG BASE EXCESS 1.4 mmol/L; ABG OXYGEN SATURATION 86.9 % (92.0-98.5); ABG PCO2 52.3 mmHg (35.0-45.0); ABG PH 7.343 (7.350-7.450); ABG PO2 53.5 mmHg (75.0-100.0); AaDO2 142.5 mmHg; COHb 0.6 % (0.5-1.5); MetHb 0.4 % (0.0-1.5); SITE, ABG Left Radial; VENT MODE, BG NASAL CANNULA
[2019-04-07] MEDS ORDERED: EPOETIN ALFA (10,000 UNIT) 10,000 UNIT/ML VIAL IV ONE (13:00)
--- NOTE | 2019-04-07 16:00 | NUR ---
RN NOTES PATIENT HAD DIALYSIS TODAY. NOT ON ANY FORM OF DISTRESS. ABLE TO TOLERATE THE PROCEDURE WELL. 500 CC OUT OF THE PATIENT. CALLED PHARMACY AND SPOKE TO LINWOOD, REGARDING VANCOMYCIN. INFORMED HIM THAT PATIENT HAD DIALYSIS TODAY BY VANCO TROUGH DONE AT 0400 TODAY IS AT 27. PER LINWOOD, HOLD VANCO DUE TODAY
[2019-04-07] MEDS: IPRATROPIUM NEB FS 0.5 MG/2.5 ML AMPUL.NEB NEB SCH ×3 (17:14→23:49)
[2019-04-07] MEDS: ALBUTEROL HALF STRENGTH 1.25 MG/3 ML VIAL.NEB NEB SCH ×3 (17:14→23:49)
--- NOTE | 2019-04-07 19:00 | NUR ---
RN NOTE ENDORSED FOR CONTINUITY OF CARE. GIVEN PAIN MEDICATION FOR COMPLAINTS OF PAIN. NOT ON ANY FORM OD DISTRESS BUT WAS REPLACED BACK TO BIPAP PATIENT COMPLAINTS PAIN. SAFETY MEASURES IN PLACED. HOB ELEVATED ON PATIENT'S DESIRE FOR COMFORT. CALL LIGHT ON HAND. PATIENT COMFORTABLE AND WARMTH
--- NOTE | 2019-04-07 19:30 | NUR ---
COLLECTIONS OFFICER INITIAL NOTES RECEIVED PATIENT IN BED, ASLEEP AT THIS TIME, BUT EASILY WAKES TO NAME BEING CALLED, ALERT AND ORIENTED X4, ABLE TO VERBALIZE NEEDS. PATIENT WAS PLACED ON NOCTURNAL BIPAP AT 1900 AT PRESCRIBED SETTINGS, PATIENT COMFORTABLE AT THIS TIME, SPO2 WNL. BEDSIDE TELEMETRY MONITORING SHOWING SINUS TACHYCARDIA, HR 101 BPM. RIGHT FEMORAL TLC PATENT AND INTACT, ALL PORTS FLUSHED WITH NS, FREE FROM ANY SIGNS AND SYMPTOMS OF INFILTRATION OR PHLEBITIS. PLAN OF CARE DISCUSSED WITH PATIENT, WHOM VERBALIZES UNDERSTANDING. ALL QUESTIONS ANSWERED ABLE. WILL MONITOR CLOSELY
[2019-04-07] MEDS: ARIPIPRAZOLE 5 MG TABLET PO SCH (21:30)
[2019-04-07] MEDS: CEFEPIME 1 GM in IV D5W 50 ML IV SCH (21:30)
[2019-04-08] VITALS (24 sets, daily range): BP systolic 85–131; BP diastolic 16–100
[2019-04-08] MEDS: HYDROCODONE/APAP 5/325MG 1 EACH TABLET PO PRN ×4 (01:23→20:08)
--- NOTE | 2019-04-08 01:30 | NUR ---
LABORER PLUMBING NOTES PATIENT REQUESTED FOR PAIN MEDICATION ADMINISTERED ORDERED. RN NOTED THAT PATIENT HAS NOT HAD A BOWEL MOVEMENT SINCE ADMISSION, REQUESTING OR PAIN MEDICATION AORUND THE CLOCK. PATIENT STATES "YOU KNOW, I DON'T FEEL LIKE IM EATING ENOUGH TO HAVE ANY POOP. I DON'T FEEL LIKE THERE'S ANYTHING THERE. RN OFFERED DULCOLAX SUPPOSITORY BUT PATIENT STRONGLY REFUSES. CONTINUE TO MONITOR
[2019-04-08] MEDS: IPRATROPIUM NEB FS 0.5 MG/2.5 ML AMPUL.NEB NEB SCH ×5 (02:48→19:30)
[2019-04-08] MEDS: ALBUTEROL HALF STRENGTH 1.25 MG/3 ML VIAL.NEB NEB SCH ×5 (02:49→19:30)
--- NOTE | 2019-04-08 07:00 | NUR ---
ESCROW REPRESENTATIVE NOTES PATIENT REMAINS IN BED ON BIPAP. PATIENT REMINDED TO LET NURSING STAFF KNOW IF SHE IS EXPERIENCING ANY CRAMPING, OR SYMPTOMS THAT WARRANT THAT SHE IS CONSTIPATED, NEEDING A SUPPOSITORY. PATIENT VERBALIZES UNDERSTANDING, STATING "DON'T WORRY, I'LL LET YOU KNOW. NOT YET." WILL ENDORSE THE PATIENT TO THE AM SHIFT NURSE FOR CONTINUITY OF CARE
--- NOTE | 2019-04-08 07:30 | NUR ---
ICU/RN AM SHIFT OPENING NOTES RECEIVED PT ASLEEP, EASILY AROUSED, PT A/O X 4, ABLE TO VERBALIZED NEEDS, LEGALLY BLIND, TAKEN OFF BI-PAP, THEN PLACED ON BREATHING TREATMENT, RESPIRATIONS EVEN & UNLABORED, LUNG SOUNDS RHONCHI. NO ACUTE DISTRESS NOTED, DENIES ANY SYMPTOMS AT THIS TIME. SATURATING @ 90%, SINUS RHYTHM ON TELE, HR 90. CENTRAL INTACT, ON TKO. PT IS COMFORTABLE. CL WITHIN REACHED AND SAFETY MAINTAINED. ON GOING MONITORING.
--- NOTE | 2019-04-08 07:37 | NUR ---
PT TAKEN OFF BiPAP AND PLACED ON NASAL CANNULA @ 4 LPMN O2 FLOW Addendum: 04/08/19 at 0737 by RHONDA MALDONADO RT Amended: Links added.
[2019-04-08] MEDS: CALCIUM ACETATE 667 MG TABLET PO SCH ×3 (08:13→17:40)
[2019-04-08] MEDS: FERROUS SULFATE (325 MG) 325 MG/TAB TABLET PO SCH (08:13)
[2019-04-08] MEDS: GUAIFENESIN LA 600 MG TABLET.SA PO SCH ×2 (08:13→21:31)
[2019-04-08] MEDS: VIT B CMPLX 3/FA/VIT C/BIOTIN 1 TAB TABLET PO SCH (08:14)
[2019-04-08] MEDS: FUROSEMIDE 40 MG TABLET PO SCH (08:14)
[2019-04-08] MEDS: SEVELAMER CARBONATE 800 MG TABLET PO SCH ×3 (08:14→17:39)
[2019-04-08] MEDS: LEVETIRACETAM (250 MG) 250 MG TABLET PO SCH ×2 (08:14→17:39)
[2019-04-08] MEDS: ESCITALOPRAM OXALATE (10 MG) 10 MG TABLET PO SCH (08:14)
[2019-04-08] MEDS: FAMOTIDINE (20 MG) 20 MG TABLET PO SCH (08:18)
[2019-04-08 08:54] LABS: CALCIUM, SERUM 8.8 mg/dL (8.5-10.1); CREATININE 6.3 mg/dL (0.6-1.3); MAGNESIUM 2.1 mg/dL (1.8-2.4); PHOSPHORUS 3.3 mg/dL (2.5-4.9); POTASSIUM 4.5 mmol/L (3.5-5.1)
--- NOTE | 2019-04-08 09:00 | NUR ---
pt. elvira ZUÑIGA rn notified. Addendum: 04/08/19 at 0900 by RHONDA MALDONADO RT Amended: Links added.
[2019-04-08 09:18] LABS: BASOPHILS % (AUTO) 0.9 % (0.0-2.0); EOSINOPHILS % (AUTO) 2.9 % (0.0-6.0); HEMATOCRIT 32 % (33-45); HEMOGLOBIN 10.4 g/dL (11.5-14.8); LYMPHOCYTES # (AUTO) 0.7 /CMM (0.8-4.8); LYMPHOCYTES % (AUTO) 13.2 % (20.0-44.0); MEAN CORPUSCULAR HGB CONC 33 g/dl (31.0-36.0); MEAN CORPUSCULAR VOLUME 98 fL (82-100); MONOCYTES # (AUTO) 0.5 /CMM (0.1-1.30); MONOCYTES % (AUTO) 9.8 % (2.0-12.0); NEUTROPHILS # (AUTO) 3.7 /CMM (1.8-8.9); NEUTROPHILS % (AUTO) 73.2 % (43.0-81.0); PLATELET COUNT (AUTO) 143 /CMM (150-450); RED BLOOD CELL COUNT(AUTO) 3.25 MIL/uL (4.0-5.2); WHITE BLOOD COUNT (AUTO) 5.1 K/uL (4.3-11.0)
[2019-04-08] MEDS: ACETYLCYSTEINE 10% SOLN 400 MG/4 ML VIAL NEB SCH ×3 (11:21→23:30)
--- NOTE | 2019-04-08 12:00 | NUR ---
ICU/RN NOON ROUNDS NO CHANGE OF CONDITION. MONITORING CONTINUED.
--- NOTE | 2019-04-08 17:30 | NUR ---
ICU/RN AFTERNOON ROUNDS PM CARE PROVIDED. NO CHANGE OF CONDITION. ON GOING MONITORING.
--- NOTE | 2019-04-08 19:25 | NUR ---
ICU/RN AM SHIFT END NOTES ALL NEEDS MET. NO ACUTE CHANGE OF CONDITION NOTED DURING THE SHIFT. PT ENDORSED TO PM NURSE TO CONTINUE CARE. CL WITHIN REACHED AND SAFETY MAINTAINED.
--- NOTE | 2019-04-08 19:45 | NUR ---
ICU/SVP CHIEF MARKETING OFFICER RECEIVED REPORT FROM DAY NURSE. SEE NURSING FLOWSHEET FOR ASSESSMENT. THERE IS A COUPLE OF SKIN ISSUES WHICH ARE ADDRESSED ON THE FLOWSHEET ALONG WITH THE INTERVENTIONS. PT IS CURRENTLY ON 4 LITERS N/C, TOLERATING THIS WELL WITH SATURATION AT 92-94%. NO ACUTE DISTRESS SEEN AT THIS TIME, PT WAS TURNED AND REPOSITIONED FOR COMFORT AND CARE WILL CONTINUE TO MONITOR THIS PT. CALL LIGHT WITHIN REACH.
--- NOTE | 2019-04-08 20:17 | NUR ---
ICU/COLLEGE SPECIALIST PT COMPLAINED OF PAIN TO BACK AND GENERALIZED AREAS, PAIN RATED AT 10/10. NORCO 1 TAB PO GIVEN FOR PAIN. WILL CONTINUE TO MONITOR THIS PT. CALL LIGHT WITHIN REACH
[2019-04-08] MEDS: ARIPIPRAZOLE 5 MG TABLET PO SCH (21:30)
--- NOTE | 2019-04-08 22:12 | NUR ---
RT PT CODED CPR INITIATED PLACED BACK ON VENT Addendum: 04/08/19 at 2306 by PAULINA STEWARD RT WRONG PT DOCUMENTED
--- NOTE | 2019-04-08 22:30 | NUR ---
ICU/LINE WELDER PT PLACED ON NOCTURNAL BIPAP, WILL MONITOR THIS PT. CALL LIGHT WITHIN REACH.
--- NOTE | 2019-04-08 23:39 | NUR ---
ICU/TELEPHONE LINEMAN PT COMPLAINED THAT SHE WANTED THE BIPAP OFF, IT WAS TAKEN OFF THEN APPLIED 4 LITERS VIA N/C ON. CALL LIGHT WITHIN REACH. WILL CONTINUE TO MONITOR THIS PT AND HER SATURATION.
[2019-04-09] VITALS (24 sets, daily range): BP systolic 86–143; BP diastolic 36–83
--- NOTE | 2019-04-09 00:10 | NUR ---
ICU/BAFFLE MOUNTER PT REFUSED TO BE TURNED AND REPOSITIONED. PT REQUESTED TO SLEEP. CALL LIGHT WITHIN REACH.
[2019-04-09] MEDS: ALBUTEROL HALF STRENGTH 1.25 MG/3 ML VIAL.NEB NEB SCH ×7 (00:55→23:57)
[2019-04-09] MEDS: IPRATROPIUM NEB FS 0.5 MG/2.5 ML AMPUL.NEB NEB SCH ×7 (00:55→23:57)
--- NOTE | 2019-04-09 02:00 | NUR ---
ICU/CASHIER ASSOCIATE PT REFUSED TO BE TURNED AND REPOSITIONED. PT REQUESTED TO SLEEP. CALL LIGHT WITHIN REACH.
[2019-04-09] MEDS: HYDROCODONE/APAP 5/325MG 1 EACH TABLET PO PRN ×4 (02:26→20:30)
--- NOTE | 2019-04-09 02:33 | NUR ---
ICU/KARATE INSTRUCTOR PT COMPLAINED OF PAIN TO BACK AND GENERALIZED AREAS, PAIN RATED AT 10/10. NORCO 1 TAB PO GIVEN FOR PAIN. WILL CONTINUE TO MONITOR THIS PT. CALL LIGHT WITHIN REACH
--- NOTE | 2019-04-09 04:00 | NUR ---
ICU/MINE ENGINEER PT REFUSED TO BE TURNED AND REPOSITIONED. PT REQUESTED TO SLEEP. CALL LIGHT WITHIN REACH.
[2019-04-09 04:28] LABS: BASOPHILS % (AUTO) 0.5 % (0.0-2.0); EOSINOPHILS % (AUTO) 2.9 % (0.0-6.0); HEMATOCRIT 30 % (33-45); HEMOGLOBIN 9.8 g/dL (11.5-14.8); LYMPHOCYTES # (AUTO) 0.6 /CMM (0.8-4.8); LYMPHOCYTES % (AUTO) 10.8 % (20.0-44.0); MEAN CORPUSCULAR HGB CONC 33 g/dl (31.0-36.0); MEAN CORPUSCULAR VOLUME 97 fL (82-100); MONOCYTES # (AUTO) 0.6 /CMM (0.1-1.30); MONOCYTES % (AUTO) 11.1 % (2.0-12.0); NEUTROPHILS # (AUTO) 4.3 /CMM (1.8-8.9); NEUTROPHILS % (AUTO) 74.7 % (43.0-81.0); PLATELET COUNT (AUTO) 155 /CMM (150-450); RED BLOOD CELL COUNT(AUTO) 3.12 MIL/uL (4.0-5.2); WHITE BLOOD COUNT (AUTO) 5.8 K/uL (4.3-11.0)
[2019-04-09 04:39] LABS: CALCIUM, SERUM 8.9 mg/dL (8.5-10.1); MAGNESIUM 2.1 mg/dL (1.8-2.4); PHOSPHORUS 4.8 mg/dL (2.5-4.9); POTASSIUM 5.2 mmol/L (3.5-5.1)
--- NOTE | 2019-04-09 05:02 | NUR ---
RT PT ALERT AWAKE ORIENTED REFUSES BREATHING TX NO RESP DISTRESS ON 4L NC MATHEUS WELL PLACED ON BIPAP FOR ABOUT 1HR, PT WANTED IT OFF AFTER
[2019-04-09 05:07] LABS: CREATININE 7.6 mg/dL (0.6-1.3)
--- NOTE | 2019-04-09 05:25 | NUR ---
ICU/TEAM FACILITATOR PT WAS PLACED BACK ON BIPAP, PER PT'S REQUEST. WILL CONTINUE TO MONITOR THIS PT AND HER SATURATION. CALL LIGHT WITHIN REACH.
--- NOTE | 2019-04-09 05:56 | NUR ---
ICU/BUNCHER HAND CRITICAL LAB VALUE IS CREATININE 7.6, PT IS TO HAVE HD TODAY. THIS IS TRENDING EXPECTED.
--- NOTE | 2019-04-09 06:00 | NUR ---
ICU/REAL ESTATE CLOSING COORDINATOR PT REFUSED TO BE TURNED AND REPOSITIONED. PT REQUESTED TO SLEEP. CALL LIGHT WITHIN REACH.
--- NOTE | 2019-04-09 07:00 | NUR ---
PLASTIC TUBING INSULATION SUPERVISOR PATIENT ON BIPAP WITH 18/10 RATE 16 FI02 [id number]. PATIENT IS RESTING COMFORTABLY ON THE BED. NO ACUTE RESPIRATORY DISTRESS, NO PAIN. PATIENT A/OX4 . PATIENT IS LEGALLY BLIND .PATIENT IS ON SR PATIENT SKIN IS IN TACT. R FEMORAL LC , R /L AV FISTULA - RIGHT AV FISTULA USED TO HD. BED LOCKED AND LOWEST POSITION CALL LIGHT WITH IN REACH ALL SAFETY MEASURE IMPLEMENTED PER HOSPITAL POLICY
[2019-04-09] MEDS: ACETYLCYSTEINE 10% SOLN 400 MG/4 ML VIAL NEB SCH ×3 (07:35→23:57)
--- NOTE | 2019-04-09 08:00 | NUR ---
BREAKFAST MANAGER - OFF BIPAP PATIENT OFF BIPAP PATIENT IS EATING AND DRINKING FOOD WITH MORNING MEDICATION
[2019-04-09] MEDS: LEVETIRACETAM (250 MG) 250 MG TABLET PO SCH ×2 (08:53→16:54)
[2019-04-09] MEDS: FERROUS SULFATE (325 MG) 325 MG/TAB TABLET PO SCH (08:53)
[2019-04-09] MEDS: VIT B CMPLX 3/FA/VIT C/BIOTIN 1 TAB TABLET PO SCH (08:53)
[2019-04-09] MEDS: SEVELAMER CARBONATE 800 MG TABLET PO SCH ×3 (08:53→17:32)
[2019-04-09] MEDS: GUAIFENESIN LA 600 MG TABLET.SA PO SCH ×2 (08:53→20:20)
[2019-04-09] MEDS: FAMOTIDINE (20 MG) 20 MG TABLET PO SCH (08:54)
[2019-04-09] MEDS: CALCIUM ACETATE 667 MG TABLET PO SCH ×3 (08:54→17:32)
[2019-04-09] MEDS: FUROSEMIDE 40 MG TABLET PO SCH (08:54)
[2019-04-09] MEDS: ESCITALOPRAM OXALATE (10 MG) 10 MG TABLET PO SCH (08:54)
--- NOTE | 2019-04-09 18:40 | NUR ---
AUTOMATIC HEAD SAWYER PATIENT IS RESTING COMFORTABLY ON THE BED. NO ACUTE RESPIRATORY DISTRESS, NO PAIN. PATIENT A/OX4 . PATIENT ON NC 4L OXYGEN. SATURATING WELL AT 98 %. PATIENT IS LEGALLY BLIND .PATIENT IS ON SR PATIENT SKIN IS IN TACT. R FEMORAL LC , R /L AV FISTULA - RIGHT AV FISTULA USED TO HD. BED LOCKED AND LOWEST POSITION CALL LIGHT WITH IN REACH ALL SAFETY MEASURE IMPLEMENTED PER HOSPITAL POLICY PATIENT REFUSED TO BE TURNED. BUT AM CARE PROVIDED.
--- NOTE | 2019-04-09 19:30 | NUR ---
PHARMACY DATA ANALYST NOTE RECEIVED PT A/O X4 AND ABLE TO MAKE NEEDS KNOWN. PT IS LEGALLY BLIND. ON 4L OF O2 VIA NC AND TOLERATING WELL. HOB ELEVATED. TELE- SR. PT ASKING TO BE PLACED ON BIPAP. R ARM AV FISTULA NOTED WITH POSITIVE BRUIT AND THRILL. IV R FEMORAL CLEAN AND DRY. CALL LIGHT WITHIN REACH. WILL MONITOR.
--- NOTE | 2019-04-09 20:15 | NUR ---
PT PLACED ON NOCTURNAL BIPAP. BREATHING TX GIVEN PER MD'S ORDER, NO ADVERSE REACTION NOTED. NO RESPIRATORY DISTRESS NOTED AT THIS TIME. WILL CONTINUE TO MONITOR T/O THE SHIFT.
[2019-04-09] MEDS: MIDODRINE HCL (5MG) 5 MG TABLET PO PRN (20:21)
[2019-04-09] MEDS: ARIPIPRAZOLE 5 MG TABLET PO SCH (23:12)
[2019-04-10] VITALS (25 sets, daily range): BP systolic 74–163; BP diastolic 45–87
--- NOTE | 2019-04-10 01:30 | NUR ---
VIDEOTAPE OPERATOR NOTE TOOK PT OFF BIPAP PER PT REQUEST AND PLACED ON 4L OF O2 VIA NC. WILL MONITOR.
[2019-04-10] MEDS: HYDROCODONE/APAP 5/325MG 1 EACH TABLET PO PRN ×3 (03:18→16:30)
[2019-04-10] MEDS: ALBUTEROL HALF STRENGTH 1.25 MG/3 ML VIAL.NEB NEB SCH ×6 (03:19→23:08)
[2019-04-10] MEDS: IPRATROPIUM NEB FS 0.5 MG/2.5 ML AMPUL.NEB NEB SCH ×6 (03:19→23:08)
[2019-04-10] MEDS: ACETYLCYSTEINE 10% SOLN 400 MG/4 ML VIAL NEB SCH ×3 (07:46→23:08)
--- NOTE | 2019-04-10 07:50 | NUR ---
HOUSE ADMIN: pt.is A/Ox3, blind, can follow commands, c/o low back pain 3-5 now, arms/legs activity+, SR, episodes of low SBP around 80-90, O2sat. 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
--- NOTE | 2019-04-10 08:20 | NUR ---
OPHTHALMOLOGY ASSISTANT: is in room, updated with all above, ordered ABG
[2019-04-10] MEDS: SEVELAMER CARBONATE 800 MG TABLET PO SCH ×3 (08:34→17:04)
[2019-04-10] MEDS: CALCIUM ACETATE 667 MG TABLET PO SCH ×3 (08:34→17:04)
[2019-04-10] MEDS: FAMOTIDINE (20 MG) 20 MG TABLET PO SCH (08:53)
[2019-04-10] MEDS: GUAIFENESIN LA 600 MG TABLET.SA PO SCH ×2 (08:53→21:39)
[2019-04-10] MEDS: ESCITALOPRAM OXALATE (10 MG) 10 MG TABLET PO SCH (08:54)
[2019-04-10] MEDS: FERROUS SULFATE (325 MG) 325 MG/TAB TABLET PO SCH (08:54)
[2019-04-10] MEDS: LEVETIRACETAM (250 MG) 250 MG TABLET PO SCH ×2 (08:54→16:29)
[2019-04-10] MEDS: FUROSEMIDE 40 MG TABLET PO SCH (08:54)
[2019-04-10] MEDS: VIT B CMPLX 3/FA/VIT C/BIOTIN 1 TAB TABLET PO SCH (08:54)
--- NOTE | 2019-04-10 09:15 | NUR ---
SKILLED NURSING CASE MANAGER: pt.is tolerated well for resp.Tx, SBP 90-96 now, SR, c/o low back pain 10/11, repositioned, got [place], O2sat. over 92%, ABG order+/RT is aware
[2019-04-10 10:21] LABS: ABG BASE EXCESS -0.5 mmol/L; ABG OXYGEN SATURATION 85.3 % (92.0-98.5); ABG PH 7.337 (7.350-7.450); ABG PO2 54.3 mmHg (75.0-100.0); AaDO2 174.6 mmHg; COHb 0.4 % (0.5-1.5); MetHb 0.4 % (0.0-1.5); O2Hb 84.6 % (94.0-97.0); SITE, ABG Left Radial; VENT MODE, BG N/C 5LPM
[2019-04-10] MEDS: MIDODRINE HCL (5MG) 5 MG TABLET PO PRN (12:41)
--- NOTE | 2019-04-10 13:58 | NUR ---
PULL OVER: O2sat. monitor: 82-89%, reapplied new sensor, no SOB, no c/o, on 5L n/c, called to RT
--- NOTE | 2019-04-10 14:02 | NUR ---
HEEL SEAT TRIMMER: pt.is on 10L O2 SM now, O2sat 87-89%, going to get resp.Tx, continue monitoring
--- NOTE | 2019-04-10 14:21 | NUR ---
OCCUPATIONAL THERAPY INSTRUCTOR: O2sat.92-94% now, RR 16 on 10L SM
--- NOTE | 2019-04-10 15:04 | NUR ---
CONSUMER STUDIES PROFESSOR: pt got RespTX, tolerated well, RR 14-16, O2sat. 91-94% on 6Ln/c now
--- NOTE | 2019-04-10 16:50 | NUR ---
RIGHT OF WAY CUTTER: O2sat. 94-96% on 4 L n/c, no SOB, SR, SBP over 100, c/o low back pain -10/11/got [place] and before PM care, PM/skin care done, refused to change dipper/said I am clean,
--- NOTE | 2019-04-10 18:10 | NUR ---
CHEMICAL PROJECT ENGINEER: pt is transferred to [facility], full report is given for ROYAL Toribio, included nocturnal BIPAP
--- NOTE | 2019-04-10 18:30 | NUR ---
TELE/RN NOTES RECEIVED PATIENT FROM ICU, ACCOMPANIED BY ROYAL VALADEZ. PATIENT IS ALERT AND ORIENTED X4. NO PAIN OR ACUTE DISTRESS AT THIS TIME. RESPIRATION EVEN AND UNLABORED. SKIN IS DRY WARM TO TOUCH. PATIENT ABLE TO MAKE NEEDS KNOWN. IV ACCESS INTACT AND PATENT FLUSHING WELL. NO S/S OF INFECTION OR INFILTRATION. DIALYSIS SITE INTACT WELL. ALL NEEDS ANTICIPATED. CALL LIGHT WITHIN REACH. BED LOCKED AND IN LOWEST POSITION. SAFETY MAINTAINED. WILL CONTINUE TO MONITOR CLOSELY.
--- NOTE | 2019-04-10 19:00 | NUR ---
[facility] RN OPENING NOTES RECEIVED PATIENT IN BED, AWAKE, A/OX4, ABLE TO MAKE NEEDS KNOWN. ON TELE MONITOR SR WITH HR 90'S. LEGALLY BLIND. DENIES ANY PAIN AT THE MOMENT. ON OXYGEN 4L VIA NASAL CANNULA, SATURATING 88-89, NO RESPIRATORY DISTRESS NOTED. RIGHT FEMORAL TLC FLUSHING AND PATENT, SALINE LOCKED, SITE C/D/I, NO S/S OF INFECTION OR INFILTRATION. DIALYSIS SITE INTACT. PATIENT ANURIC, ON DIAPER. SAFETY MEASURES IN PLACE; CALL LIGHT WITHIN REACH, BED LOCKED AND IN LOWEST POSITION, SR UP X2, HOB ELEVATED. ISOLATION PRECAUTION MAINTAINED. WILL CONTINUE TO MONITOR PT CLOSELY.
--- NOTE | 2019-04-10 19:34 | NUR ---
TELE/RN NOTES PATIENT CONTINUES TO REMAIN IN STABLE CONDITION THROUGHOUT THE SHIFT. PROVIDED COMFORT AND SAFETY. IV ACCESS INTACT AND PATENT. NO S/S OF INFECTION OR INFILTRATION. ALL NEEDS ANTICIPATED. CALL LIGHT WITHIN REACHED. BED LOCKED AND IN LOWEST POSITION. SAFETY MAINTAINED. WILL CONTINUE TO MONITOR. ENDORSED TO PM NURSE FOR SAIRA.
--- NOTE | 2019-04-10 21:22 | NUR ---
RT NOTE PT RECEIVED ON 32% NASAL CANNULA. PT AWAKE/ALERT. PLACED PT ON BIPAP DUE TO LOW SATURATION. MEPILEX APPLIED ON FACE, MASK SECURED. TX GIVEN, NO ADVERSE REACTIONS NOTED. DIMINISHED B/S NOTED. NO SOB NOTED. WILL MONITOR T/O SHIFT. Addendum: 04/10/19 at 2124 by MARY BETH LEIVA RT Amended: Links added.
[2019-04-10] MEDS: ARIPIPRAZOLE 5 MG TABLET PO SCH (22:45)
[2019-04-11] VITALS: BP 126/42
[2019-04-11] MEDS: IPRATROPIUM NEB FS 0.5 MG/2.5 ML AMPUL.NEB NEB SCH ×6 (03:53→23:12)
[2019-04-11] MEDS: ALBUTEROL HALF STRENGTH 1.25 MG/3 ML VIAL.NEB NEB SCH ×6 (03:53→23:12)
[2019-04-11 04:00] VITALS: BP 129/96
[2019-04-11] MEDS: HYDROCODONE/APAP 5/325MG 1 EACH TABLET PO PRN ×2 (04:30→16:33)
--- NOTE | 2019-04-11 06:37 | NUR ---
[facility] RN CLOSING NOTES PATIENT IN BED, AWAKE, A/OX4. NO ACUTE CHANGES THROUGHOUT SHIFT. HD NURSE AT BEDSIDE. ON TELE MONITOR SR WITH HR 90'S. DENIES ANY PAIN AT THE MOMENT. ON OXYGEN 4L VIA NASAL CANNULA, SATURATING 90%, NO RESPIRATORY DISTRESS NOTED. RIGHT FEMORAL TLC FLUSHING AND PATENT, SALINE LOCKED, SITE C/D/I, NO S/S OF INFECTION OR INFILTRATION. DIALYSIS SITE INTACT. KEPT PT CLEAN AND DRY, REPOSITIONED Q2H. SAFETY MEASURES AND ISOLATION PRECAUTION MAINTAINED. WILL CONTINUE TO MONITOR PT CLOSELY. WILL ENDORSE TO AM RN FOR SAIRA.
--- NOTE | 2019-04-11 07:25 | NUR ---
[facility]/RN OPENING NOTES RECEIVED PATIENT IN BED AWAKE, ALERT AND ABLE TO MAKE NEEDS KNOWN. PATIENT CONTINUES ON TELE MONITOR SR WITH HR 85'S. PATIENT IS LEGALLY BLIND. NO PAIN OR ACUTE DISTRESS AT THIS TIME. RESPIRATION EVEN AND UNLABORED. SKIN IS DRY WARM TO TOUCH. NOTED WITH RIGHT FEMORAL TLC INTACT AND PATENT. FLUSHING WELL. NO S/S OF INFECTION OR INFILTRATION. PATIENT CURRENTLY ON DIALYSIS AT THIS TIME. TOLERATING WELL. ALL NEEDS ANTICIPATED. CALL LIGHT WITHIN REACHED. BED LOCKED AND IN LOWEST POSITION. SAFETY MAINTAINED. PLAN OF CARE DISCUSSED. WILL CONTINUE TO MONITOR CLOSELY.
[2019-04-11] MEDS: ACETYLCYSTEINE 10% SOLN 400 MG/4 ML VIAL NEB SCH ×3 (07:29→23:12)
[2019-04-11 08:00] VITALS: BP_SYST 109; BP_SYST 78; BP_DIAS 43; BP_DIAS 59
[2019-04-11 08:08] LABS: BASOPHILS % (AUTO) 0.7 % (0.0-2.0); EOSINOPHILS % (AUTO) 3.2 % (0.0-6.0); HEMATOCRIT 29 % (33-45); HEMOGLOBIN 9.4 g/dL (11.5-14.8); LYMPHOCYTES # (AUTO) 0.8 /CMM (0.8-4.8); LYMPHOCYTES % (AUTO) 15.1 % (20.0-44.0); MEAN CORPUSCULAR HGB CONC 32 g/dl (31.0-36.0); MEAN CORPUSCULAR VOLUME 96 fL (82-100); MONOCYTES # (AUTO) 0.5 /CMM (0.1-1.30); NEUTROPHILS # (AUTO) 3.7 /CMM (1.8-8.9); PLATELET COUNT (AUTO) 157 /CMM (150-450); RED BLOOD CELL COUNT(AUTO) 3.03 MIL/uL (4.0-5.2); WHITE BLOOD COUNT (AUTO) 5.3 K/uL (4.3-11.0)
[2019-04-11 08:18] LABS: CALCIUM, SERUM 8.5 mg/dL (8.5-10.1); CREATININE 7.5 mg/dL (0.6-1.3); MAGNESIUM 2.4 mg/dL (1.8-2.4); PHOSPHORUS 3.7 mg/dL (2.5-4.9); POTASSIUM 5.2 mmol/L (3.5-5.1)
--- NOTE | 2019-04-11 09:00 | NUR ---
milling general superintendent Notes Patient refused all medication at this time, patient completed HD. Will follow up in an hour to try again.
[2019-04-11] MEDS: LEVETIRACETAM (250 MG) 250 MG TABLET PO SCH ×2 (10:36→16:33)
[2019-04-11] MEDS: FUROSEMIDE 40 MG TABLET PO SCH (10:36)
[2019-04-11] MEDS: GUAIFENESIN LA 600 MG TABLET.SA PO SCH ×2 (10:37→21:25)
[2019-04-11] MEDS: ESCITALOPRAM OXALATE (10 MG) 10 MG TABLET PO SCH (10:38)
[2019-04-11] MEDS: SEVELAMER CARBONATE 800 MG TABLET PO SCH ×3 (10:38→19:09)
[2019-04-11] MEDS: CALCIUM ACETATE 667 MG TABLET PO SCH ×3 (10:38→19:09)
[2019-04-11] MEDS: VIT B CMPLX 3/FA/VIT C/BIOTIN 1 TAB TABLET PO SCH (10:38)
[2019-04-11] MEDS: FAMOTIDINE (20 MG) 20 MG TABLET PO SCH (10:39)
[2019-04-11] MEDS: FERROUS SULFATE (325 MG) 325 MG/TAB TABLET PO SCH (10:46)
[2019-04-11 12:00] VITALS: BP_SYST 101; BP_SYST 89; BP_DIAS 41; BP_DIAS 62
[2019-04-11 16:00] VITALS: BP_SYST 100; BP_SYST 98; BP_DIAS 53; BP_DIAS 58
--- NOTE | 2019-04-11 19:25 | NUR ---
TELE/RN ENTRY NOTES PATIENT RECEIVED IN BED, AWAKE, ALERT AND ORIENTED X4, LEGALLY BLIND, IN NO ACUTE DISTRESS, BREATHING EVEN AND UNLABORED. NO SHORTNESS OF BREATH NOTED. DENIES ANY PAIR OR DISCOMFORT AT THIS TIME, ON O2 4LPM VIA NC, SATURATION 96%. RIGHT FEMORAL TLC INTACT, PATENT. SINUS RHYTHM ON TELE MONITOR. SAFETY MAINTAINED, BED AT THE LOWEST , LOCKED POSITION. ISOLATION PRECAUTION MAINTAINED. CALL LIGHT WITHIN REACH. WILL CONTINUE TO MONITOR PER PLAN OF CARE.
--- NOTE | 2019-04-11 19:29 | NUR ---
TELE/RN CLOSING NOTES PATIENT CONTINUES TO REMAIN IN STABLE CONDITION THROUGHOUT THE SHIFT. PROVIDED COMFORT AND SAFETY. NO PAIN OR ACUTE DISTRESS AT THIS TIME. RESPIRATION EVEN AND UNLABORED. SKIN IS DRY WARM TO TOUCH. NOTED WITH RIGHT FEMORAL TLC INTACT AND PATENT. FLUSHING WELL. NO S/S OF INFECTION OR INFILTRATION. ALL NEEDS ANTICIPATED. CALL LIGHT WITHIN REACHED. BED LOCKED AND IN LOWEST POSITION. SAFETY MAINTAINED. ENDORSED TO PM NURSE FOR SAIRA.
[2019-04-11 20:00] VITALS: BP 98/76
[2019-04-11] MEDS: ARIPIPRAZOLE 5 MG TABLET PO SCH (21:25)
--- NOTE | 2019-04-11 23:13 | NUR ---
RT NOTES PT PLACED ON NOCTURNAL BIPAP JD COTTER ORDERS. HHN TX GIVEN. NO ADVERSE REACTION NOTED. NO RESP DISTRESS/SOB NOTED AT THIS TIME. WILL CONTINUE TO MONITOR. Addendum: 04/11/19 at 2330 by SAQIB MEDEL RT Amended: Links added.
[2019-04-12] VITALS: BP 90/64
[2019-04-12] MEDS: HYDROCODONE/APAP 5/325MG 1 EACH TABLET PO PRN ×3 (00:36→15:00)
[2019-04-12] MEDS: ALBUTEROL HALF STRENGTH 1.25 MG/3 ML VIAL.NEB NEB SCH ×4 (03:28→15:30)
[2019-04-12] MEDS: IPRATROPIUM NEB FS 0.5 MG/2.5 ML AMPUL.NEB NEB SCH ×4 (03:28→15:30)
[2019-04-12 04:00] VITALS: BP 92/56
[2019-04-12 06:26] LABS: BASOPHILS % (AUTO) 0.7 % (0.0-2.0); EOSINOPHILS % (AUTO) 3.2 % (0.0-6.0); HEMATOCRIT 31 % (33-45); HEMOGLOBIN 9.9 g/dL (11.5-14.8); LYMPHOCYTES # (AUTO) 0.9 /CMM (0.8-4.8); LYMPHOCYTES % (AUTO) 16.7 % (20.0-44.0); MEAN CORPUSCULAR HGB CONC 32 g/dl (31.0-36.0); MEAN CORPUSCULAR VOLUME 96 fL (82-100); MONOCYTES # (AUTO) 0.6 /CMM (0.1-1.30); MONOCYTES % (AUTO) 10.7 % (2.0-12.0); NEUTROPHILS # (AUTO) 3.6 /CMM (1.8-8.9); NEUTROPHILS % (AUTO) 68.7 % (43.0-81.0); PLATELET COUNT (AUTO) 141 /CMM (150-450); RED BLOOD CELL COUNT(AUTO) 3.21 MIL/uL (4.0-5.2); WHITE BLOOD COUNT (AUTO) 5.3 K/uL (4.3-11.0)
[2019-04-12 06:46] LABS: CALCIUM, SERUM 8.8 mg/dL (8.5-10.1); CREATININE 6.4 mg/dL (0.6-1.3); MAGNESIUM 2.4 mg/dL (1.8-2.4); PHOSPHORUS 3.3 mg/dL (2.5-4.9); POTASSIUM 4.6 mmol/L (3.5-5.1)
--- NOTE | 2019-04-12 06:52 | NUR ---
TELE/RN EXIT NOTES PATIENT REMAINED IN BED, RESTING COMFORTABLY AT THIS TIME, ALERT AND ORIENTED TO HER BASE LINE, IN NO ACUTE DISTRESS, BREATHING EVEN AND UNLABORED. NO SHORTNESS OF BREATH NOTED. DENIES ANY PAIR OR DISCOMFORT AT THIS TIME, ON O2 4LPM VIA NC, SATURATION 97%. RIGHT FEMORAL TLC INTACT, PATENT. SINUS RHYTHM ON TELE MONITOR. DUE MEDS GIVEN ORDERED, TOLERATED WELL. NEEDS ATTENDANT. SAFETY MAINTAINED, BED AT THE LOWEST , LOCKED POSITION. ISOLATION PRECAUTION MAINTAINED. CALL LIGHT WITHIN REACH. WILL ENDORSE TO AM SHIFT NURSE FOR SAIRA.
[2019-04-12] MEDS: ACETYLCYSTEINE 10% SOLN 400 MG/4 ML VIAL NEB SCH ×2 (07:51→15:30)
[2019-04-12 08:00] VITALS: BP 94/61
[2019-04-12] MEDS: FAMOTIDINE (20 MG) 20 MG TABLET PO SCH (08:41)
[2019-04-12] MEDS: GUAIFENESIN LA 600 MG TABLET.SA PO SCH (08:41)
[2019-04-12] MEDS: FERROUS SULFATE (325 MG) 325 MG/TAB TABLET PO SCH (08:41)
[2019-04-12] MEDS: SEVELAMER CARBONATE 800 MG TABLET PO SCH ×2 (08:41→13:01)
[2019-04-12] MEDS: LEVETIRACETAM (250 MG) 250 MG TABLET PO SCH (08:42)
[2019-04-12] MEDS: VIT B CMPLX 3/FA/VIT C/BIOTIN 1 TAB TABLET PO SCH (08:43)
[2019-04-12] MEDS: CALCIUM ACETATE 667 MG TABLET PO SCH ×2 (08:43→13:01)
[2019-04-12] MEDS: ESCITALOPRAM OXALATE (10 MG) 10 MG TABLET PO SCH (08:43)
[2019-04-12] MEDS: FUROSEMIDE 40 MG TABLET PO SCH (08:43)
[2019-04-12] MEDS: MIDODRINE HCL (5MG) 5 MG TABLET PO PRN (08:44)
[2019-04-12] MEDS ORDERED: MIDO5TAB4 PO (10:18)
[2019-04-12 12:00] VITALS: BP 94/61
--- NOTE | 2019-04-12 16:11 | NUR ---
rn note pt discharged to [facility], in stable condition, exit care done, discharge papers signed by nurse ,pt unable to sign due to blindness. and teachings done to pt, pt verbalized understanding, pt encouraged to use bipap at the facility, mask and tubing provided, blanket and pillow provided, report given to ROYAL Woo. r femoral catheter removed, id band removed. skin was intact.
== END 2019-04-12 16:05 | DRG 177 ==
LOC: ER 09:23 → ICU 12:38 → TELE-TD 04-10 17:56 → TELE1 04-11 09:13
PROVIDERS: ADMIT Internal Medicine; ATTEND Internal Medicine
DX: J69.0 Pneumonitis due to inhalation of food and vomit (principal); N18.6 End stage renal disease; G93.41 Metabolic encephalopathy; E43 Unspecified severe protein-calorie malnutrition; J96.22 Acute and chronic respiratory failure with hypercapnia; J96.21 Acute and chronic respiratory failure with hypoxia; D68.69 Other thrombophilia; E87.2 Acidosis; I12.0 Hypertensive chronic kidney disease with stage 5 chronic kidney disease or end stage renal disease; E66.2 Morbid (severe) obesity with alveolar hypoventilation; N25.81 Secondary hyperparathyroidism of renal origin; J98.11 Atelectasis; E88.81 Metabolic syndrome and other insulin resistance; F20.9 Schizophrenia, unspecified; E83.51 Hypocalcemia; G89.29 Other chronic pain; K21.9 Gastro-esophageal reflux disease without esophagitis; Z68.29 Body mass index [BMI] 29.0-29.9, adult; F31.9 Bipolar disorder, unspecified; D69.6 Thrombocytopenia, unspecified; D63.1 Anemia in chronic kidney disease; F39 Unspecified mood [affective] disorder; E88.09 Other disorders of plasma-protein metabolism, not elsewhere classified; G40.909 Epilepsy, unspecified, not intractable, without status epilepticus; Z99.2 Dependence on renal dialysis; T17.990A Other foreign object in respiratory tract, part unspecified in causing asphyxiation, initial encounter; X58.XXXA Exposure to other specified factors, initial encounter; Y93.9 Activity, unspecified; Y92.129 Unspecified place in nursing home as the place of occurrence of the external cause; Z93.0 Tracheostomy status; J44.9 Chronic obstructive pulmonary disease, unspecified; Z91.5 Personal history of self-harm; Z87.891 Personal history of nicotine dependence; D50.9 Iron deficiency anemia, unspecified
CPT/HCPCS: 36415; 36569; 36600; 71045-TC; 74018; 80048-TC; 80053-TC; 80076-TC; 80202-TC; 82803-TC; 83735-TC; 83880; 84100-TC; 84484-TC; 85025-TC; 85652-TC; 86706; 87070-TC; 87081-TC; 87340; 90935-TC; 94660; 94760-TC; 94799-TC; A4624; A6403; C1751; G0378; J0692; J0885; J3370; J7050; J7060

== ENCOUNTER 2019-08-25 07:01 | Inpatient (IN) | payer BC, MEDICAID ==
[~2019-08-25] VITALS: Ht 175.3 cm; Wt 79.8 kg
[~2019-08-25 07:01] MED LIST changes: +ARIP10TA9 PO; +BISA10SU11 RC; +CALC667T2 PO; -DOCU50LI GT; +FERR325T23 PO; +FOLI0.8T2 PO; +FURO-144 PO; +GUAI600T31 PO; +HYDR-4384 PO; +LEVE250T2 PO; -MELA3TAB63 GT; -MIDO5TAB4 GT; +MIDO5TAB4 PO; -NUT.237L67 GT; +POLY17PO4 PO; -SENN-18 GT; +SEVE800T8 PO
--- NOTE | 2019-08-25 07:03 | NUR ---
patient came in to the er from [facility] c/o non working AV shunt on JACKIE. No HD done this morning. On room air, breathing evenly and unlabored. connected to the monitor and pulse ox. kept comfortable, will continue to monitor accordingly.
--- NOTE | 2019-08-25 07:12 | NUR ---
CALLED [facility] [phone]. ITS [place]
--- NOTE | 2019-08-25 07:31 | NUR ---
ananda at bedside for x-ray
[2019-08-25 07:36] LABS: BASOPHILS % (AUTO) 0.4 % (0.0-2.0); EOSINOPHILS % (AUTO) 3.8 % (0.0-6.0); HEMATOCRIT 32 % (33-45); LYMPHOCYTES # (AUTO) 0.8 /CMM (0.8-4.8); LYMPHOCYTES % (AUTO) 13.8 % (20.0-44.0); MEAN CORPUSCULAR HGB CONC 32 g/dl (31.0-36.0); MEAN CORPUSCULAR VOLUME 94 fL (82-100); MONOCYTES # (AUTO) 0.5 /CMM (0.1-1.30); MONOCYTES % (AUTO) 8.6 % (2.0-12.0); NEUTROPHILS # (AUTO) 4.1 /CMM (1.8-8.9); NEUTROPHILS % (AUTO) 73.4 % (43.0-81.0); PLATELET COUNT (AUTO) 103 /CMM (150-450); RED BLOOD CELL COUNT(AUTO) 3.38 MIL/uL (4.0-5.2); WHITE BLOOD COUNT (AUTO) 5.6 K/uL (4.3-11.0)
--- NOTE | 2019-08-25 07:55 | NUR ---
CALLED [facility] [address] ITS DR. IBARRA
--- NOTE | 2019-08-25 08:28 | NUR ---
CALLED FOR TELE BED.
[2019-08-25 08:32] LABS: CALCIUM, SERUM 7.9 mg/dL (8.5-10.1); POTASSIUM 5.9 mmol/L (3.5-5.1)
[2019-08-25 08:34] LABS: CREATININE 7.5 mg/dL (0.6-1.3)
--- NOTE | 2019-08-25 08:38 | NUR ---
BUN 108 DR. ALMONTE INFORMED.
[2019-08-25] MEDS ORDERED: CHOL100040 PO (08:43)
[2019-08-25] MEDS ORDERED: ASCO-352 PO (08:43)
[2019-08-25] MEDS ORDERED: MELA3TAB41 PO (08:43)
[2019-08-25] MEDS ORDERED: SODIUM BICARBONATE SYR 50 MEQ/50 ML DISP.SYRIN IV ONE (09:00)
[2019-08-25] MEDS ORDERED: SODIUM POLYSTYRENE SULFONATE 15 G/60 ML BOTTLE PO ONE (09:00)
[2019-08-25] MEDS ORDERED: CALCIUM CHLORIDE 1,000 MG/10 ML DISP.SYRIN IV ONE (09:00)
[2019-08-25] MEDS ORDERED: SODIUM POLYSTYRENE SULFONATE 15 G/60 ML BOTTLE ONE (09:17)
[2019-08-25] MEDS ORDERED: CALCIUM CHLORIDE 1,000 MG/10 ML DISP.SYRIN ONE (09:18)
[2019-08-25] MEDS ORDERED: SODIUM BICARBONATE SYR 50 MEQ/50 ML DISP.SYRIN ONE (09:18)
[2019-08-25] MEDS ORDERED: Calcium Gluconate 1GM/10ML 4.65 MEQ in IV NS 0.9% 100 ML IV ONE (09:30)
--- NOTE | 2019-08-25 11:22 | NUR ---
report given to marta PAIGE for alden
--- NOTE | 2019-08-25 12:43 | NUR ---
wheeled patient via gurney accompanied by RN and emt in no distress. RN at bedside to assume care.
--- NOTE | 2019-08-25 12:50 | NUR ---
TELE/RN NOTES ADMITTED A 53 YEAR OLD FEMALE PATIENT FROM ER VIA [facility]. INITIAL VITAL SIGN TAKEN AND RECORD BP 98/72 HR 105 RR 17 TEMP 97.9. INITIAL SKIN ASSESSMENT WAS DONE AND TAKE PHOTO. NO RESPIRATORY DISTRESS. DENIES ANY PAIN AT THIS TIME. PATIENT IS IN ROOM AIR. WILL CONTINUE TO MONITOR.
--- NOTE | 2019-08-25 14:04 | NUR ---
TELE/RN NOTES DR. HINDS ORDER NPO AFTER MIDNIGHT, CONSENT FOR RIGHT ARM ARTERIOVENOUS GRAFT THROMBECTOMY AND REVISION AND POSSIBLE DIALYSIS CATHETER PLACEMENT AND BMP IN AM. AT 1000 AM. NOTED AND CARRIED OUT.
[2019-08-25] MEDS ORDERED: diphenhydrAMINE HCL 25 MG CAPSULE MC PRN (15:30)
[2019-08-25] MEDS ORDERED: MIDODRINE HCL (5MG) 5 MG TABLET PO PRN (15:30)
[2019-08-25 16:00] VITALS: BP 124/69
[2019-08-25] MEDS: CALCIUM ACETATE 667 MG TABLET GT SCH (17:11)
[2019-08-25] MEDS: SEVELAMER CARBONATE 0.8 GM POWD.PACK GT SCH (17:11)
[2019-08-25] MEDS: HYDROCODONE/APAP 5/325MG 1 EACH TABLET PO PRN (17:20)
--- NOTE | 2019-08-25 18:37 | NUR ---
MS/RN CLOSING NOTES PATIENT IS ON BED. A/O X4. ON ROOM AIR, NO APPARENT RESPIRATORY DISTRESS NOTED. PATIENT DENIES PAIN AT THIS TIME. IV ACCESS ON LEFT WRIST AC #22 G PATENT AND INTACT. SEEN AND EXAMINED BY MD WITH ORDERS MADE AND CARRIED OUT. ALL DUE MEDICATION WAS GIVEN. CHECKED PATIENT EVERY 2 HOURS. BED IN LOWEST AND LOCKED POSITION WITH SIDE RAILS UP X2, CALL LIGHT IS WITHIN REACH. PATIENT IS FOR RIGHT ARM AV GRAFT THROMBECTOMY AND REVISION, POSSIBLE DIALYSIS CATHETER PLACEMENT, NPO POST MIDNIGHT, CONSENT WAS SIGN AND ATTACH TO CHART. SURGERY AT 1000AM. WILL ENDORSED TO HAND II TUBE BENDER FOR SAIRA.
--- NOTE | 2019-08-25 19:05 | NUR ---
CIGAR WRAPPER TENDER AUTOMATIC NOTES RECEIVED PT IN BED AWAKE AND ABLE TO MAKE NEEDS KNOWN. PT A/O X3, AND BLIND. RESPIRATIONS EVEN AND UNLABORED WITH NO S/S OF ACUTE DISTRESS OR SOB NOTED. PT NOTED WITH IV ACCESS ON LEFT WRIST #22 G PATENT AND INTACT. NO COMPLAINTS OF PAIN AT THIS TIME. SAFETY MEASURES IN PLACE WITH BED IN LOWEST LOCKED POSITION WITH SIDE RAILS UP X2. CALL LIGHT WITHIN REACH. WILL CONTINUE TO MONITOR.
[2019-08-25 20:38] VITALS: BP 98/51
[2019-08-25] MEDS: ARIPIPRAZOLE 5 MG TABLET GT SCH (21:45)
[2019-08-25 23:25] LABS: BASOPHILS % (AUTO) 0.4 % (0.0-2.0); EOSINOPHILS % (AUTO) 3.2 % (0.0-6.0); HEMATOCRIT 31 % (33-45); HEMOGLOBIN 9.8 g/dL (11.5-14.8); LYMPHOCYTES # (AUTO) 0.8 /CMM (0.8-4.8); LYMPHOCYTES % (AUTO) 15.3 % (20.0-44.0); MEAN CORPUSCULAR HGB CONC 32 g/dl (31.0-36.0); MEAN CORPUSCULAR VOLUME 92 fL (82-100); MONOCYTES # (AUTO) 0.5 /CMM (0.1-1.30); MONOCYTES % (AUTO) 10.2 % (2.0-12.0); NEUTROPHILS # (AUTO) 3.8 /CMM (1.8-8.9); NEUTROPHILS % (AUTO) 70.9 % (43.0-81.0); PLATELET COUNT (AUTO) 111 /CMM (150-450); RED BLOOD CELL COUNT(AUTO) 3.37 MIL/uL (4.0-5.2); WHITE BLOOD COUNT (AUTO) 5.3 K/uL (4.3-11.0)
[2019-08-25 23:39] LABS: CALCIUM, SERUM 8.3 mg/dL (8.5-10.1)
[2019-08-25 23:41] LABS: CREATININE 7.6 mg/dL (0.6-1.3)
[2019-08-26 00:54] VITALS: BP 107/59
[2019-08-26 04:06] VITALS: BP 107/58
[2019-08-26 06:53] LABS: CALCIUM, SERUM 8.3 mg/dL (8.5-10.1); POTASSIUM 5.4 mmol/L (3.5-5.1)
[2019-08-26 06:55] LABS: CREATININE 7.6 mg/dL (0.6-1.3)
--- NOTE | 2019-08-26 07:10 | NUR ---
FIBER PRODUCT CUTTING MACHINE OPERATOR OPENING NOTES RECEIVED PT IN BED AWAKE AT THIS TIME. A/O X3, AND BLIND. PT IS ABLE TO MAKE NEEDS KNOWN. NO SOB, RESPIRATIONS EVEN AND UNLABORED, NO S/S OF ACUTE DISTRESS NOTED. NO C/O PAIN AT THIS TIME. IV ACCESS IN LEFT WRIST G#22 PATENT AND INTACT. PT ON EXTERNAL CARDIAC TELE MONITOR READING SR IN THE 90S.PT ON NPO STATUS AT THIS TIME. SAFETY PRECAUTIONS IN PLACE, BED IN LOWEST LOCKED POSITION, HOB ELEVATED TO SEMI FOWLERS POSITION, SIDE RAILS UP X2. CALL LIGHT WITHIN REACH. WILL CONTINUE TO MONITOR.
--- NOTE | 2019-08-26 07:37 | NUR ---
PLUMBER NOTES PT IN BED AWAKE AND ABLE TO MAKE NEEDS KNOWN. PT A/O X3, AND BLIND. RESPIRATIONS EVEN AND UNLABORED WITH NO S/S OF ACUTE DISTRESS OR SOB NOTED THROUGHOUT SHIFT. PT KEPT CLEAN, DRY, AND COMFORTABLE. PT NOTED WITH IV ACCESS ON LEFT WRIST #22 G PATENT AND INTACT. NO COMPLAINTS OF PAIN AT THIS TIME. SAFETY MEASURES IN PLACE WITH BED IN LOWEST LOCKED POSITION WITH SIDE RAILS UP X2. CALL LIGHT WITHIN REACH. WILL ENDORSE TO ONCOMING NURSE FOR SAIRA.
[2019-08-26 08:00] VITALS: BP 105/72
[2019-08-26] MEDS: SEVELAMER CARBONATE 0.8 GM POWD.PACK GT SCH ×3 (08:27→18:08)
[2019-08-26] MEDS: CALCIUM ACETATE 667 MG TABLET GT SCH ×3 (08:27→18:08)
[2019-08-26] MEDS: POLYETHYLENE GLYCOL 3350 17 GM POWD.PACK PO SCH (08:57)
[2019-08-26] MEDS: FUROSEMIDE 40 MG TABLET PO SCH (08:57)
[2019-08-26] MEDS: FAMOTIDINE (20 MG) 20 MG TABLET PO SCH (08:57)
[2019-08-26] MEDS: FERROUS SULFATE (325 MG) 325 MG/TAB TABLET PO SCH (08:57)
[2019-08-26] MEDS ORDERED: ANESTHESIA TRAY IN PYXIS 1 EA TRAY MC ONE (09:29)
[2019-08-26] MEDS ORDERED: BACITRACIN 50000 UNITS/VIAL ONE (09:33)
[2019-08-26] MEDS ORDERED: LIDOCAINE HCL/MPF 1% 30 ML VIAL IJ ONE (09:33)
[2019-08-26] MEDS ORDERED: THROMBIN (BOVINE) 5,000 UNITS VIAL TP ONE (09:36)
[2019-08-26] MEDS ORDERED: GELATIN SPONGE,ABSORBABLE 1 SPONGE SPONGE TP ONE (09:36)
--- NOTE | 2019-08-26 10:00 | NUR ---
PT REQUESTED IV REMOVAL STATING "IT HURTS WHEN I MOVE MY WRIST" . IV SITE INTACT, PATENT AND FLUSHING WELL. IV ACCESS REMOVED PER PATIENT, PRESSURE APPLIED, SECURED WITH GAUZE AND TAPE. NO BLEEDING OR INFILTRATION NOTED. NEW IV ACCESS INSERTED BY DOCTOR ORELLANA, ON LEFT WRIST G#22. WILL CONTINUE TO MONITOR
--- NOTE | 2019-08-26 10:45 | NUR ---
PATIENT TRANSPORTED BY BED TO OR BY OR NURSE FOR RIGHT ARM ARTERIOVENOUS GRAFT THROMBECTOMY AND REVISION AND POSSIBLE DIALYSIS CATHETER PLACEMENT. VITAL SIGNS, BP 105/72, HR 96, RR 20, TEMP 97.5, SPO2 96. CONSENT FOR BLOOD, ANESTHESIA AND PROCEDURE SIGNED BY PATIENT AFTER DOCTOR EXPLAINED BENEFITS AND RISKS INVOLVED. WILL CONTINUE WITH PLAN OF CARE
[2019-08-26] MEDS ORDERED: HEPARIN SODIUM, PORCINE 1,000 UNIT/ML VIAL ONE (11:34)
--- NOTE | 2019-08-26 13:30 | NUR ---
PATIENT TRANSPORTED BY BED TO UNIT BY KYLIE, OR NURSE FROM HAVING RIGHT FEMORAL TUNNELED CATH INSERTION/ATTEMPTED PERMA CATH INSERTION AT [facility]. VITAL SIGNS TAKEN, BP 115/82, HR 108, RR 18, TEMP 97.8, SPO2 97. WILL CONTINUE TO MONITOR
--- NOTE | 2019-08-26 13:45 | NUR ---
VITAL SIGNS TAKEN AT THIS TIME, BP 106/68, HR 98, RR 18, T 98.0, SPO2 100, WILL CONTINUE TO MONITOR
--- NOTE | 2019-08-26 14:15 | NUR ---
VITAL SIGNS TAKEN AT THIS TIME, BP 112/78, HR 94, RR 18, T 97.9, SPO2 100, WILL CONTINUE TO MONITOR
[2019-08-26] MEDS: HYDROCODONE/APAP 5/325MG 1 EACH TABLET PO PRN ×2 (14:51→20:35)
--- NOTE | 2019-08-26 15:15 | NUR ---
VITAL SIGNS TAKEN AT THIS TIME, BP 105/78, HR 998, RR 18, T 98.0, SPO2 100, WILL CONTINUE TO MONITOR Addendum: 08/26/19 at 1651 by PRANAV SLAUGHTER RN VITAL SIGNS TAKEN AT THIS TIME, BP 105/78, HR 98, RR 18, T 98.0, SPO2 100, WILL CONTINUE TO MONITOR
--- NOTE | 2019-08-26 15:19 | NUR ---
PT ON REGULAR DIET WITH LOW POTASSIUM PER DR HINDS ORDERS. WILL CONTINUE TO MONITOR
[2019-08-26 16:00] VITALS: BP 111/68
--- NOTE | 2019-08-26 16:00 | NUR ---
VITAL SIGNS TAKEN AT THIS TIME, BP 111/68, HR 99, RR 18, T 98.1, SPO2 100, WILL CONTINUE TO MONITOR
--- NOTE | 2019-08-26 16:45 | NUR ---
PER DOCTOR GUZMAN, IT IS OK FOR PATIENT TO HAVE DIALYSIS. CONSENT FOR HEMODIALYSIS SIGNED BY PATIENT AND FILED IN CHART. PATIENT IS ONGOING DIALYSIS AT THIS TIME WITH [facility] N[facility]. WILL CONTINUE TO MONITOR
--- NOTE | 2019-08-26 18:47 | NUR ---
REELING MACHINE SETUP OPERATOR CLOSING NOTES PT IN BED AWAKE AT THIS TIME. PT REMAINED STABLE THROUGHOUT SHIFT. NO S/S OF ANY ACUTE DISTRESS NOTED. NO C/O PAIN AT THIS TIME. PT KEPT CLEAN AND DRY. ALL CARE, NEEDS, TREATMENT AND MEDICATIONS ADMINISTERED ANTICIPATED PER ORDER. PT REPOSITIONED Q2HRS, PRN AND PER PROTOCOL. SAFETY PRECAUTIONS IN PLACE, BED IN LOWEST LOCKED POSITION, BED ALARM ON, HOB ELEVATED TO SEMI FOWLERS POSITION, SIDE RAILS UP, CALL LIGHT WITHIN REACH. WILL ENDORSE TO HOUSEHOLD COORDINATOR NURSE FOR SAIRA.
[2019-08-26 20:25] VITALS: BP 91/51
--- NOTE | 2019-08-26 20:36 | NUR ---
MS/TELE/RN PATIENT IS AWAKE, ALERT, ORIENTED, C/O PAIN IN HD CATH INSERTION SITE 10/11, NORCO 1 TAB WAS GIVEN ORDERED, NO SIGNS OF DISTRESS NOTED, PRESENTLY EATING SANDWICH, WILL MONITOR.
[2019-08-26 20:39] VITALS: BP 110/72
[2019-08-26] MEDS: ARIPIPRAZOLE 5 MG TABLET GT SCH (21:25)
--- NOTE | 2019-08-26 23:16 | NUR ---
MS/TELE/RN PATIENT IS SLEEPING AT THIS TIME, APPEAR COMFORTABLE, NO SIGNS OF DISTRESS NOTED, CALL LIGHT IN REACH, WILL CONTINUE TO MONITOR.
[2019-08-27 08:00] VITALS: BP 113/51
[2019-08-27] MEDS: SEVELAMER CARBONATE 0.8 GM POWD.PACK GT SCH ×3 (08:00→18:10)
[2019-08-27] MEDS: CALCIUM ACETATE 667 MG TABLET GT SCH ×3 (08:00→18:10)
[2019-08-27] MEDS: FERROUS SULFATE (325 MG) 325 MG/TAB TABLET PO SCH (09:00)
[2019-08-27] MEDS: FAMOTIDINE (20 MG) 20 MG TABLET PO SCH (09:00)
[2019-08-27] MEDS: POLYETHYLENE GLYCOL 3350 17 GM POWD.PACK PO SCH (09:00)
[2019-08-27] MEDS: FUROSEMIDE 40 MG TABLET PO SCH (09:00)
--- NOTE | 2019-08-27 10:14 | NUR ---
Patient is in bed resting. Patient tolerated AM care well. Patient denies pain, distress, and shortness of breath. Bed in low position. Call light in reach. Will continue to monitor patient throughout shift.
[2019-08-27 16:13] VITALS: BP 108/73
[2019-08-27] MEDS: HYDROCODONE/APAP 5/325MG 1 EACH TABLET PO PRN ×2 (16:37→21:29)
--- NOTE | 2019-08-27 18:32 | NUR ---
Patient is in bed resting. Patient is alert and oriented x3-4. Patient is blind. Patient is upset about not being discharged today. Spoke with patients sister regarding discharge status and explained the current situation. Consoled patient with snacks and reassured her that discharge will occur when the facility has a bed. Bed in low position. Call light in reach. Will give report to night nurse.
--- NOTE | 2019-08-27 19:28 | NUR ---
MS RN NOTES PATIENT IN BED, AWAKE, ALERT AND ORIENTED X 3, PT IS BLIND. BREATHING EVEN AND UNLABORED ON ROOM AIR. SHOWS NO SIGNS OF ACUTE RESPIRATORY DISTRESS, NO ACUTE PAIN. STOMA ON OLD TRACH SITE. HD 08/26 2L OUT. IV ON L WRIST 22G ITS FLUSHING, CLEAN DRY AND INTACT. SHOWS NO SIGNS OF INFILTRATION, NO REDNESS. HD PORT ON R UPPER THIGH. SAFETY PRECAUTIONS IN PLACE. BED IN LOWEST POSITION, LOCKED, AND CALL LIGHT KEPT WITHIN REACH. WILL CONTINUE TO MONITOR.
[2019-08-27 19:30] VITALS: BP 122/71
[2019-08-27 20:34] VITALS: BP 122/74
[2019-08-27] MEDS: ARIPIPRAZOLE 5 MG TABLET GT SCH (21:29)
--- NOTE | 2019-08-27 21:44 | NUR ---
MS RN NOTES PATIENT COMPLAINING OF PAIN. VITAL SIGNS WNL. GIVEN PRN NORCO AT 2129. WILL CONTINUE TO MONITOR.
--- NOTE | 2019-08-28 06:35 | NUR ---
MS RN NOTES PATIENT IN BED, ASLEEP, ALERT AND ORIENTED X 3, PT IS BLIND. BREATHING EVEN AND UNLABORED ON ROOM AIR. SHOWS NO SIGNS OF ACUTE RESPIRATORY DISTRESS, NO ACUTE PAIN. STOMA ON OLD TRACH SITE. IV ON L WRIST 22G ITS FLUSHING, CLEAN DRY AND INTACT. SHOWS NO SIGNS OF INFILTRATION, NO REDNESS. HD PORT ON R UPPER THIGH. ALL DUE MEDICATIONS GIVEN. SAFETY PRECAUTIONS IN PLACE. BED IN LOWEST POSITION, LOCKED, AND CALL LIGHT KEPT WITHIN REACH. WILL ENDORSE TO ONCOMING NURSE.
[2019-08-28 08:00] VITALS: BP 92/51
--- NOTE | 2019-08-28 08:00 | NUR ---
MS/RN Opening Note Received patient in bed, sleeping, able to responds verbal responds. Does no appears pain or discomfort, S Addendum: 08/28/19 at 0849 by KARL MCKENNA RN error
--- NOTE | 2019-08-28 08:00 | NUR ---
MS/RN Opening Note Received patient in bed, sleeping, able to responds verbal responds. Does no appears pain or discomfort, skin is warm to touch, kept clean/dry. Respiratory even and unlabored in room air, no sob or distress observed. Keep bed in lock with elevated HOB for secure airway. Pt refused morning meds. Call light within reach, will continue to monitor.
[2019-08-28] MEDS: FERROUS SULFATE (325 MG) 325 MG/TAB TABLET PO SCH (10:03)
[2019-08-28] MEDS: FAMOTIDINE (20 MG) 20 MG TABLET PO SCH (10:03)
[2019-08-28] MEDS: CALCIUM ACETATE 667 MG TABLET GT SCH ×3 (10:03→18:21)
[2019-08-28] MEDS: POLYETHYLENE GLYCOL 3350 17 GM POWD.PACK PO SCH (10:04)
[2019-08-28] MEDS: SEVELAMER CARBONATE 0.8 GM POWD.PACK GT SCH ×3 (10:04→18:21)
[2019-08-28] MEDS: HYDROCODONE/APAP 5/325MG 1 EACH TABLET PO PRN ×2 (10:07→20:39)
[2019-08-28] MEDS: FUROSEMIDE 40 MG TABLET PO SCH (10:08)
[2019-08-28 16:00] VITALS: BP 127/41
--- NOTE | 2019-08-28 18:28 | NUR ---
MS/RN Closing note Patient in bed start eating dinner assisted by staff, does no pain or discomfort but demanding discharge. Respiratory even and unlabored in room air. Skin is warm to touch, keep clean/dry, intact IV and Perma cath on right groin area. Collected and sent covid test sample x 1. Keep bed in lock with elevated HOB for secure airway and aspiration precaution. Call light within reach, will endorse night warehouse selector.
[2019-08-28 20:00] VITALS: BP 117/57
--- NOTE | 2019-08-28 20:00 | NUR ---
MS RN OPENING NOTES RECEIVED PATIENT IN BED, AWAKE, BLIND, BREATHING AT ROOM AIR, NO SIGNS OF DIFFICULTY IN BREATHING, WITH POST TRACH, LEFT WRIST #22G, RIGHT GROIN PERMACATH, PARAPLEGIC, SIDE RAILS UP.
[2019-08-28] MEDS: ARIPIPRAZOLE 5 MG TABLET GT SCH (21:05)
--- NOTE | 2019-08-29 06:23 | NUR ---
MS RN CLOSING NOTES ENDORSED PATIENT IN BED, AWAKE, BLIND, BREATHING AT ROOM AIR, NO SIGNS OF DIFFICULTY IN BREATHING, WITH POST TRACH, LEFT WRIST #22G, NO REDNESS OR INFILTRATION NOTED, RIGHT GROIN PERMACATH, PARAPLEGIC, DUE MEDS GIVEN, SIDE RAILS UP FOR SAFETY.
--- NOTE | 2019-08-29 07:25 | NUR ---
M/S RN NOTES PATIENT RESTING IN BED, ALERT AND ORIENTED X3. NO RESPIRATORY DISTRESS, NO C/O PAIN AT THIS TIME. PATIENT'S SKIN WARM TO TOUCH, IV ACCESS SITE INTACT AND PATENT. PERMACATH ON THE RT GROIN. PATIENT'S NEEDS ATTENDED, BED ON LOWEST LOCKED POSITION, CALL LIGHT WITHIN REACH. WILL CONTINUE TO MONITOR.
[2019-08-29 08:00] VITALS: BP 106/49
[2019-08-29] MEDS: POLYETHYLENE GLYCOL 3350 17 GM POWD.PACK PO SCH (08:30)
[2019-08-29] MEDS: SEVELAMER CARBONATE 0.8 GM POWD.PACK GT SCH ×3 (08:30→18:16)
[2019-08-29] MEDS: FERROUS SULFATE (325 MG) 325 MG/TAB TABLET PO SCH (08:30)
[2019-08-29] MEDS: FUROSEMIDE 40 MG TABLET PO SCH (08:30)
[2019-08-29] MEDS: CALCIUM ACETATE 667 MG TABLET GT SCH ×3 (08:30→18:18)
[2019-08-29] MEDS: FAMOTIDINE (20 MG) 20 MG TABLET PO SCH (08:30)
[2019-08-29] MEDS: HYDROCODONE/APAP 5/325MG 1 EACH TABLET PO PRN ×2 (14:53→22:39)
[2019-08-29 16:00] VITALS: BP 124/71
--- NOTE | 2019-08-29 18:53 | NUR ---
M/S RN NOTES PATIENT IN NO RESPIRATORY DISTRESS, NO C/O PAIN AT THIS TIME. PATIENT'S SKIN WARM TO TOUCH, IV ACCESS SITE INTACT AND PATENT. PERMACATH ON THE RT GROIN. PATIENT'S NEEDS ATTENDED, BED ON LOWEST LOCKED POSITION, CALL LIGHT WITHIN REACH. WILL ENDORSE TO ONCOMING NURSE.
--- NOTE | 2019-08-29 19:00 | NUR ---
RN MS OPENING NOTES RECEIVED PATIENT IN BED AWAKE ALERT AND ORIENTED X 3, RESPIRATIONS EVEN AND UNLABORED WITH EQUAL RISE AND FALL OF CHEST , AT THIS TIME DENIES ANY PAIN OR DISCOMFORT, IV SITE TO LEFT WRIST INTACT AND PATENT, NO REDNESS, NO INFILTRATION PRESENT, RIGHT GROIN HD PERMACATH IN PLACE, HD NURSE AT BEDSIDE WHOM CHANGED C-LINE DRESSING, ORIENTED TO STAFF AND CALL LIGHT AND KEPT WITHIN REACH, SAFETY PRECAUTIONS IN PLACE, LOW BED AND LOCKED, BED ALARM IN PLACE, ON CONTACT ISOLATION FOR MRSA NARES, COVID TEST PENDING, ALL NEEDS ATTENDED AT THIS TIME, WILL CONTINUE TO MONITOR AND ATTEND TO NEEDS, REMAINS COMFORTABLE AT THIS TIME.
--- NOTE | 2019-08-29 19:30 | NUR ---
RN MS NOTES HD NURSE PLACED ORDER FOR ALTEPLASE 2MG TO DECLOT HD CATHETER. ORDERED CARRIED OUT, FAXED TO RN DERRICK WORKER. AWAITING MEDICATION , HD NURSE MADE AWARE.
[2019-08-29 20:00] VITALS: BP 139/74
[2019-08-29] MEDS ORDERED: ALTEPLASE CATHFLO 2 MG/VIAL XX ONE (20:00)
[2019-08-29] MEDS ORDERED: ALTEPLASE CATHFLO 2 MG/VIAL ONE ×2 (20:16→20:24)
--- NOTE | 2019-08-29 20:32 | NUR ---
RN MS NOTES ALTEPLASE 2MG NOT AVAILABLE AT THIS TIME, PER HD NURSE MARIANO WILL NOT DO HD TODAY SHE NOTIFIED HER LEATHER LACER. PATIENT IS ALSO AWARE.
[2019-08-29] MEDS: ARIPIPRAZOLE 5 MG TABLET GT SCH (21:12)
--- NOTE | 2019-08-29 22:39 | NUR ---
rn ms notes patient complained of pain to groin area, / requested for norco pain medication. vs wnl , norco prn given as ordered, will continue to monitor.
[2019-08-30] MEDS: HYDROCODONE/APAP 5/325MG 1 EACH TABLET PO PRN ×3 (05:56→21:39)
--- NOTE | 2019-08-30 05:57 | NUR ---
rn ms notes patient complained of pain to back and right groin area 08/11 requested for norco prn norco prn given as ordered, will continue to monitor for effectiveness.
--- NOTE | 2019-08-30 06:30 | NUR ---
RN MS CLOSING NOTES PATIENT IN BED AWAKE ALERT AND ORIENTED X 3, RESPIRATIONS EVEN AND UNLABORED WITH EQUAL RISE AND FALL OF CHEST , IV SITE TO LEFT WRIST INTACT AND PATENT, RIGHT GROIN HD PERMACATH IN PLACE DRESSING IS C/D/I. NO REDNESS, NO INFILTRATION PRESENT, BEDPAN OFFERED X1 BM THIS SHIFT, PERINEAL CARE PROVIDED SKIN IS INTACT, CALL LIGHT KEPT WITHIN REACH, SAFETY PRECAUTIONS IN PLACE, LOW BED AND LOCKED, BED ALARM IN PLACE, ON CONTACT ISOLATION FOR MRSA NARES, COVID TEST PENDING, ALL NEEDS ATTENDED AT THIS TIME, WILL CONTINUE TO MONITOR AND ATTEND TO NEEDS, REMAINS COMFORTABLE AT THIS TIME AND WILL ENDORSE TO NEXT SHIFT.
[2019-08-30 06:34] LABS: BASOPHILS % (AUTO) 0.3 % (0.0-2.0); EOSINOPHILS % (AUTO) 2.6 % (0.0-6.0); HEMATOCRIT 31 % (33-45); HEMOGLOBIN 9.4 g/dL (11.5-14.8); LYMPHOCYTES # (AUTO) 0.8 /CMM (0.8-4.8); MEAN CORPUSCULAR HGB CONC 31 g/dl (31.0-36.0); MEAN CORPUSCULAR VOLUME 97 fL (82-100); MONOCYTES # (AUTO) 0.5 /CMM (0.1-1.30); MONOCYTES % (AUTO) 8.4 % (2.0-12.0); NEUTROPHILS # (AUTO) 4.5 /CMM (1.8-8.9); NEUTROPHILS % (AUTO) 74.7 % (43.0-81.0); PLATELET COUNT (AUTO) 108 /CMM (150-450); RED BLOOD CELL COUNT(AUTO) 3.14 MIL/uL (4.0-5.2)
[2019-08-30 06:48] LABS: CREATININE 6.2 mg/dL (0.6-1.3); MAGNESIUM 2.5 mg/dL (1.8-2.4); PHOSPHORUS 5.7 mg/dL (2.5-4.9); POTASSIUM 4.8 mmol/L (3.5-5.1)
--- NOTE | 2019-08-30 07:36 | NUR ---
MS RN OPENING NOTE PATIENT IN BED RESTING COMFORTABLY. PATIENT IN NO ACUTE DISTRESS. NO SOB NOTED. PATIENT BREATHING IS EVEN AND UNLABORED. PATIENT BED ALARM IS ON. SAFETY PRECAUTIONS IN PLACE. PATIENT BED IS LOCKED AND IN LOWEST POSITION. CALL LIGHT WITHIN REACH. WILL CONTINUE TO MONITOR.
[2019-08-30 08:00] VITALS: BP 107/53
[2019-08-30] MEDS: SEVELAMER CARBONATE 0.8 GM POWD.PACK GT SCH ×3 (08:49→17:11)
[2019-08-30] MEDS: FUROSEMIDE 40 MG TABLET PO SCH (08:49)
[2019-08-30] MEDS: FERROUS SULFATE (325 MG) 325 MG/TAB TABLET PO SCH (08:49)
[2019-08-30] MEDS: POLYETHYLENE GLYCOL 3350 17 GM POWD.PACK PO SCH (08:49)
[2019-08-30] MEDS: CALCIUM ACETATE 667 MG TABLET GT SCH ×3 (08:49→17:11)
[2019-08-30] MEDS: FAMOTIDINE (20 MG) 20 MG TABLET PO SCH (08:49)
[2019-08-30] MEDS ORDERED: ALTEPLASE CATHFLO 2 MG/VIAL IV ONE (11:00)
[2019-08-30 16:00] VITALS: BP 111/70
--- NOTE | 2019-08-30 18:47 | NUR ---
MS RN CLOSING NOTE PATIENT IN BED RESTING COMFORTABLY. PATIENT IN NO ACUTE DISTRESS. NO SOB NOTED. PATIENT BREATHING IS EVEN AND UNLABORED. PATIENT KEPT CLEAN, DRY AND COMFORTABLE THROUGHOUT SHIFT. PATIENT CURRENTLY UNDERGOING DIALYSIS. PATIENT NEEDS AND CONCERNS ADDRESSED. PATIENT BED ALARM IS ON. SAFETY PRECAUTIONS IN PLACE. PATIENT BED IS LOCKED AND IN LOWEST POSITION. CALL LIGHT WITHIN REACH. WILL ENDORSE CARE TO PM SHIFT FOR SAIRA.
--- NOTE | 2019-08-30 19:00 | NUR ---
RN MS OPENING NOTES RECEIVED PATIENT IN BED AWAKE ALERT AND ORIENTED X 3, RESPIRATIONS EVEN AND UNLABORED WITH EQUAL RISE AND FALL OF CHEST , AT THIS TIME DENIES ANY PAIN OR DISCOMFORT, IV SITE TO LEFT WRIST INTACT AND PATENT, NO REDNESS, NO INFILTRATION PRESENT, RIGHT GROIN HD PERMACATH IN PLACE, HD NURSE AT BEDSIDE, ORIENTED TO STAFF AND CALL LIGHT AND KEPT WITHIN REACH, SAFETY PRECAUTIONS IN PLACE, LOW BED AND LOCKED, BED ALARM IN PLACE, ON CONTACT ISOLATION FOR MRSA NARES, COVID TEST PENDING, ALL NEEDS ATTENDED AT THIS TIME, WILL CONTINUE TO MONITOR AND ATTEND TO NEEDS, REMAINS COMFORTABLE AT THIS TIME.
[2019-08-30 20:00] VITALS: BP 106/61
--- NOTE | 2019-08-30 20:40 | NUR ---
RN MS NOTES PER HD NURSE AT BEDSIDE HD IS COMPLETE REMOVED 1200 OUTPUT. VS ASSESSED WNL.
[2019-08-30] MEDS: ARIPIPRAZOLE 5 MG TABLET GT SCH (21:28)
--- NOTE | 2019-08-30 21:39 | NUR ---
RN MS NOTE PATIENT COMPLAINED OF PAIN TO BACK AREA, RIGHT GROIN AREA, GENERALIZED AREAS 7/10 REQUESTED FOR NORCO PRN PRN NORCO GIVEN ORDERED, VITAL SIGNS WNL. WILL CONTINUE TO MONITOR FOR EFFECTIVENESS.
--- NOTE | 2019-08-31 06:14 | NUR ---
RN MS CLOSING NOTES PATIENT IN BED SLEEPING EASILY AROUSABLE, ALERT AND ORIENTED X 3, RESPIRATIONS EVEN AND UNLABORED WITH EQUAL RISE AND FALL OF CHEST , AT THIS TIME DENIES ANY PAIN OR DISCOMFORT, IV SITE TO LEFT WRIST INTACT AND PATENT, NO REDNESS, NO INFILTRATION PRESENT, RIGHT GROIN HD PERMACATH IN PLACE, PATIENT REFUSED SATURDAY SCHEDULED WOUND PICTURES, STATES " i dont have pressure ulcers i will pass" CALL LIGHT KEPT WITHIN REACH, SNACKS AND JUICE PROVIDED REQUESTED ,SAFETY PRECAUTIONS IN PLACE, LOW BED AND LOCKED, BED ALARM IN PLACE, ON CONTACT ISOLATION FOR MRSA NARES, COVID TEST PENDING, ALL NEEDS ATTENDED AT THIS TIME, WILL CONTINUE TO MONITOR AND ATTEND TO NEEDS, REMAINS COMFORTABLE AT THIS TIME WILL ENDORSE TO NEXT SHIFT.
--- NOTE | 2019-08-31 06:33 | NUR ---
RN MS NOTES ASSESSED PATIENT BP 95/54, HR 70 DESPITE EDUCATION WHEN OFFERED MIDODRINE FOR BLOOD PRESSURE PATIENT STATES " IM NOT TAKING IT, THANK YOU" PATIENT ASYMPTOMATIC.
--- NOTE | 2019-08-31 07:32 | NUR ---
MS/RN Opening note Patient received from hand upper and bottom lacer. Sleeping soundly at this time, does not appear in any distress or discomfort. Call light within reach, bed in low setting, brakes locked. Will continue to monitor and ensure safety.
[2019-08-31] MEDS: POLYETHYLENE GLYCOL 3350 17 GM POWD.PACK PO SCH (08:48)
[2019-08-31] MEDS: CALCIUM ACETATE 667 MG TABLET GT SCH ×3 (08:48→17:11)
[2019-08-31] MEDS: SEVELAMER CARBONATE 0.8 GM POWD.PACK GT SCH ×3 (08:48→17:11)
[2019-08-31] MEDS: FUROSEMIDE 40 MG TABLET PO SCH (08:48)
[2019-08-31] MEDS: FAMOTIDINE (20 MG) 20 MG TABLET PO SCH (08:48)
[2019-08-31] MEDS: FERROUS SULFATE (325 MG) 325 MG/TAB TABLET PO SCH (08:48)
--- NOTE | 2019-08-31 09:06 | NUR ---
MS/RN COVID COVID swab from 08/27 resulted as negative.
--- NOTE | 2019-08-31 09:26 | NUR ---
MS/RN Medications Morning medications administered as ordered.
[2019-08-31] MEDS: HYDROCODONE/APAP 5/325MG 1 EACH TABLET PO PRN ×2 (12:21→20:15)
--- NOTE | 2019-08-31 15:18 | NUR ---
MS/welcome hostess Call received from Dr Lakhani, patient to be scheduled for dialysis catheter replacement tomorrow. NPO from midnight, consent forms to be signed.
--- NOTE | 2019-08-31 15:37 | NUR ---
MS/RN Consent Patient refusing to sign any consent forms at this time, stating that she does not want to have further surgery and just wanting to go home. Will inform Dr Lowe when rounding this afternoon. Surgery packet printed and placed in front of chart ready if patient changes her mind.
[2019-08-31 16:00] VITALS: BP_SYST 109; BP_SYST 119; BP_DIAS 60
--- NOTE | 2019-08-31 17:49 | NUR ---
MS/RN Refused medications Patient refused to take evening medications, unhappy that she will not be discharged today. Educated as to the importance of taking all medications as ordered but continues to refuse.
--- NOTE | 2019-08-31 18:29 | NUR ---
MS/RN End note Second COVID swab still pending, first resulted as negative. For surgery tomorrow with Dr Lakhani, patient continues at this time to refuse to sign any consent forms as unhappy about staying in the hospital. Forms placed in front of chart. All other needs attended, call light within reach. Will endorse to night shift supervisor.
--- NOTE | 2019-08-31 19:30 | NUR ---
MS/RN OPENING NOTES RECEIVED PATIENT IN BED SLEEPING EASILY WAKEN ALERT AND ORIENTED X 3. PATIENTS RESPIRATIONS ARE EVEN AND UNLABORED. NO SIGNS OF SOB NOTED. IV SITE TO LEFT WRIST INTACT AND PATENT, NO REDNESS, NO INFILTRATION PRESENT, RIGHT GROIN HD PERMACATH IN PLACE. PATIENT STATES NO PAIN AT THE MOMENT. SAFETY MEASURES ARE IN PLACE, BED IS LOCKED AND IN THE LOWEST POSITION, SIDE RAILS UP X 2, CALL LIGHT IS PLACED WITHIN REACH. WILL CONTINUE TO MONITOR PATIENT THROUGH OUT SHIFT.
[2019-08-31 20:00] VITALS: BP 100/60
--- NOTE | 2019-08-31 20:15 | NUR ---
MS/RN NOTES PATIENT WAS COMPLAINING OF BACK PAIN STATED PAIN 8/10. PATIENT WAS GIVEN NARCO 5-325 PO. WILL CONTINUE TO MONITOR PATIENT.
[2019-08-31 20:38] VITALS: BP 100/60
[2019-08-31] MEDS: ARIPIPRAZOLE 5 MG TABLET GT SCH (21:02)
--- NOTE | 2019-09-01 06:20 | NUR ---
MS/RN CLOSING NOTES PATIENT IN BED SLEEPING, ALERT AND ORIENTED X 3. PATIENTS RESPIRATIONS ARE EVEN AND UNLABORED. NO SIGNS OF SOB NOTED. IV SITE ON LEFT WRIST INTACT AND PATENT, NO REDNESS, NO INFILTRATION PRESENT, RIGHT GROIN HD PERMACATH. NO DISTRESS NOTED. SAFETY MEASURES ARE IN PLACE, BED IS LOCKED AND IN THE LOWEST POSITION, SIDE RAILS UP X 2, CALL LIGHT IS PLACED WITHIN REACH. WILL ENDORSE CARE TO DAY SHIFT.
--- NOTE | 2019-09-01 07:15 | NUR ---
RN OPENING NOTES RECEIVED PATIENT IN BED AWAKE, A/OX3. NOT IN ANY FORM OF DISTRESS. NO SOB. DENIED ANY PAIN AT THIS TIME. IV ACCESS INTACT AND PATENT. KEPT PATIENT SAFE AND COMFORTABLE. BED IN LOW/LOCKED POSITION, SIDERAILS UPX2, CALL LIGHT IN REACH. WILL CONT TO MONITOR ACCORDINGLY.
[2019-09-01 08:00] VITALS: BP 93/57
[2019-09-01] MEDS: CALCIUM ACETATE 667 MG TABLET GT SCH ×3 (08:00→17:50)
[2019-09-01] MEDS: SEVELAMER CARBONATE 0.8 GM POWD.PACK GT SCH ×3 (08:00→17:51)
[2019-09-01] MEDS: FUROSEMIDE 40 MG TABLET PO SCH (08:48)
[2019-09-01] MEDS: FERROUS SULFATE (325 MG) 325 MG/TAB TABLET PO SCH (08:48)
[2019-09-01] MEDS: FAMOTIDINE (20 MG) 20 MG TABLET PO SCH (08:49)
[2019-09-01] MEDS: POLYETHYLENE GLYCOL 3350 17 GM POWD.PACK PO SCH (08:49)
[2019-09-01] MEDS ORDERED: ANESTHESIA TRAY IN PYXIS 1 EA TRAY MC ONE (15:02)
[2019-09-01] MEDS ORDERED: HEPARIN SODIUM, PORCINE 1,000 UNIT/ML VIAL ONE (15:03)
[2019-09-01] MEDS ORDERED: LIDOCAINE HCL/PF 1% 30 ML SDV ONE (15:03)
[2019-09-01 16:00] VITALS: BP 99/48
--- NOTE | 2019-09-01 16:45 | NUR ---
picked up for surgery
[2019-09-01] MEDS ORDERED: FENTANYL PF 100MCG/2ML AMPUL ONE (17:01)
[2019-09-01] MEDS ORDERED: HYDROCODONE/APAP 5/325MG 1 EACH TABLET ONE (17:50)
--- NOTE | 2019-09-01 18:00 | NUR ---
AUTOMOTIVE FLEET SUPERVISOR NORCO 5/325 MG PO GIVEN IN PACU X1 ORDERED
[2019-09-01 18:17] VITALS: BP 140/69
--- NOTE | 2019-09-01 18:17 | NUR ---
came back from surgery. patient in stable condition. awake and responsive, a/ox4. VS stable. will cont to monitor accordingly.
--- NOTE | 2019-09-01 18:43 | NUR ---
CALLED REPORT TO [facility] AND TALKED WITH ROYAL WHITLOCK SUP. GAVE REPORT, MADE AWARE THAT PATIENT NEEDS ANCEF 1G IV Q8 X 2DOSE.
--- NOTE | 2019-09-01 19:04 | NUR ---
RN CLOSING NOTES PATIENT IN STABLE CONDITION. ALL NEEDS ATTENDED AND PROVIDED. S/P HD CATH EXCHANGED WAS DONE TODAY. FOR DISCHARGE AT 1999 AT [facility]. SAFETY MEASURES IN PLACE. BED IN LOW/LOCKED PSOITION, SIDERAILS UPX2, CALL LIGHT IN REACH. DISCHARGED ENDORSED TO NIGHT RN ACCORDINGLY.
--- NOTE | 2019-09-01 19:10 | NUR ---
RN aminata opening notes Received Pt from morning nurse. Pt is sitting in bed comfortably. 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 Pt is able to make needs known. Respiration is normal in room air. No S/S of distress noted. IV sites at LFA# 20 is clean, intact and patent. New HD cath at Right groin is clean, intact and patent. Pictures are taken for new IV sites and new HD cath and placed in Pt's chart. D/C paperworks is signed by Pt per am nurse. Pt's belongings is checked and signed and given to Pt. Pt verbalized understanding. Ambulance will come and peanut picker Pt at 1999. Pt is going to [facility]. Safety precautions is maintained. Bed at low position, brakes locked, side rails upX3 and call light is within reach. Will continue to monitor.
[2019-09-01 19:30] VITALS: BP 120/76
--- NOTE | 2019-09-01 20:05 | NUR ---
RN aminata D/C notes Ambulance came to picked up Pt. Pt is going to [facility]. Pt is sitting in bed comfortably. Pt is alert and orientedX3 in stable condition. VS is taken and stable. Respiration is normal. No SOB. No S/S of distress noted. Pt's IV sites at LFA# 20 is clean, intact and patent. Per am nurse not to removed the IV sites because of Pt's getting IV abx in her facility. HD cath in R groin is clean, intact and dry. D/C paperwork is given to Pt. Pt's belonging is signed and given to Pt. Pt verbalized understanding about D/C paperwork and new HD cath.
[2019-09-01 20:10] VITALS: BP 101/71
[2019-09-02] MEDS ORDERED: ANCEF 1 GM/50 ML D5W IV SCH ×2 (01:00)
[2019-09-02] MEDS ORDERED: APIXABAN 2.5 MG TABLET PO SCH (09:00)
== END 2019-09-01 20:25 | DRG 314 ==
LOC: ER 07:04 → TELE 11:24 → MED 08-26 12:12
PROVIDERS: ADMIT Nurse Practitioner Acute Care; ATTEND Nurse Practitioner Acute Care
PROC: B51VYZA Fluoroscopy of Other Veins using Other Contrast, Guidance (ICD-10-PCS; principal; 2019-08-26)
PROC: 0JHL3XZ Insertion of Tunneled Vascular Access Device into Right Upper Leg Subcutaneous Tissue and Fascia, Percutaneous Approach (ICD-10-PCS; principal; 2019-08-26)
PROC: 06HY33Z Insertion of Infusion Device into Lower Vein, Percutaneous Approach (ICD-10-PCS; principal; 2019-08-26)
PROC: 5A1D70Z Performance of Urinary Filtration, Intermittent, Less than 6 Hours Per Day (ICD-10-PCS; principal; 2019-08-26)
PROC: 0JHL3XZ Insertion of Tunneled Vascular Access Device into Right Upper Leg Subcutaneous Tissue and Fascia, Percutaneous Approach (ICD-10-PCS; 2019-09-01)
PROC: 06H033Z Insertion of Infusion Device into Inferior Vena Cava, Percutaneous Approach (ICD-10-PCS; 2019-09-01)
PROC: B519YZA Fluoroscopy of Inferior Vena Cava using Other Contrast, Guidance (ICD-10-PCS; 2019-09-01)
DX: T82.868A Thrombosis due to vascular prosthetic devices, implants and grafts, initial encounter (principal); N18.6 End stage renal disease; I12.0 Hypertensive chronic kidney disease with stage 5 chronic kidney disease or end stage renal disease; E87.1 Hypo-osmolality and hyponatremia; G93.40 Encephalopathy, unspecified; G82.20 Paraplegia, unspecified; I87.1 Compression of vein; E87.5 Hyperkalemia; D69.6 Thrombocytopenia, unspecified; Y83.2 Surgical operation with anastomosis, bypass or graft as the cause of abnormal reaction of the patient, or of later complication, without mention of misadventure at the time of the procedure; Z99.2 Dependence on renal dialysis; D63.1 Anemia in chronic kidney disease; E83.41 Hypermagnesemia; E83.39 Other disorders of phosphorus metabolism; Z87.891 Personal history of nicotine dependence; Z93.0 Tracheostomy status; Z79.01 Long term (current) use of anticoagulants; K21.9 Gastro-esophageal reflux disease without esophagitis; G20 Parkinson's disease; F31.9 Bipolar disorder, unspecified; N25.0 Renal osteodystrophy; I73.9 Peripheral vascular disease, unspecified; H54.7 Unspecified visual loss; H35.00 Unspecified background retinopathy; Y71.2 Prosthetic and other implants, materials and accessory cardiovascular devices associated with adverse incidents; Y92.129 Unspecified place in nursing home as the place of occurrence of the external cause
CPT/HCPCS: 36415; 71045-TC; 80048-TC; 83735-TC; 84100-TC; 85025-TC; 85610-TC; 86850-TC; 87081-TC; 90935-TC; 93971-TC; A6253; C1750; C1769; G0378; J0280; J0610; J0690; J1100; J1644; J2370; J2405; J2704; J2997; J3010; J3490; J7030; J7060; U0003-CS